=== PATIENT | female | born 1955 | race Caucasian/White ===

== ENCOUNTER 2018-11-29 15:36 | Observation (INO) ==
[2018-11-29 17:36] LABS: Basophils % 0.6 % (0.0-0.8); Hematocrit 31.1 VOL% (35.7-47.0); Hemoglobin 10.1 GM/DL (12.0-16.0); Immature Granulocytes % 0.3 %; Immature Granulocytes Absolute 0.02 #; Lymphocytes # 1.8 10*3/uL (1.4-4.0); Lymphocytes % 26.2 % (21.3-54.2); Mean Corpuscular HGB Conc 32.5 GM/DL (32-36); Mean Corpuscular Volume 97.5 FL (87-102); Mean Platelet Volume 9.8 FL (9.6-12.0); Monocytes % 7.9 % (1.7-12.7); Platelet Count 282 T/CUMM (130-400); Red Blood Count 3.19 MC/CUMM (3.8-5.5); Red Cell Distribution Width 15.6 % (9.3-17.3); White Blood Count 6.7 T/CUMM (4-12)
[2018-11-29 17:51] LABS: INR 0.9; PT Patient Result 10.3 SECS
[2018-11-29 17:58] LABS: Alanine Aminotransferase 17 U/L (13-56); Albumin 3.8 G/DL (3.4-5.0); Alkaline Phosphatase 67 U/L (45-117); Aspartate Amino Transferase 15 U/L (0-37); Blood Urea Nitrogen 26 MG/DL (7-18); Calcium 9.1 MG/DL (8.5-10.1); Glucose 96 MG/DL (74-106); Osmolality,Calculated 281.5 MOS/KG (273-304); Total Protein 7.2 G/DL (6.4-8.3); Troponin I < 0.015 NG/ML (0.00-0.045)
[2018-11-29 18:18] LABS: Apearance,Urine Slightly Hazy (Clear); Bilirubin,Urine Negative (Negative); Blood, Urine Negative (Negative); Glucose,Urine (UA) Negative (Negative); Ketones,Urine 5 mg/dL (Negative); Mucus,Urine Few /LPF (Occasional); Nitrite,Urine Negative (Negative); Protein,Urine Negative; RBC,Urine 11 /HPF (0-4); Squamous Epithelial Cell,Urine Occasional /HPF (0-10); Urine Color Yellow (Yellow); Urine Specific Gravity 1.014 (1.001-1.035); Urine Urobilinogen < 2.0 EU/DL (0.2-1.0); WBC,Urine 416 /HPF (0-6)
[2018-11-29] MEDS ORDERED: LEVOFLOXACIN INJ 750 MG in PREMIX 1 EACH IV STA (18:40)
[2018-11-29] MEDS ORDERED: HALOPERIDOL 5 MG/ML AMP ONE (18:58)
[2018-11-29] MEDS ORDERED: HALOPERIDOL 5 MG/ML AMP IM STA (19:03)
[2018-11-29] MEDS ORDERED: LEVOFLOXACIN 750 MG TABLET PO STA (19:53)
[2018-11-29 20:49] LABS: Barbiturates Screen,Urine Negative (Negative); Benzodiazepines Screen,Urine Negative (Negative); Cannabinoid Screen,Urine Negative (Negative); Opiate Screen,Urine Negative (Negative); Phencyclidine Screen,Urine Negative (Negative)
[2018-11-29] MEDS ORDERED: NICOTINE 21 MG/24 HR PATCH TRANSDERM PRN (23:45)
[2018-11-29] MEDS ORDERED: PROMETHAZINE 25 MG/1 ML VIAL IM PRN (23:45)
[2018-11-29] MEDS ORDERED: HALOPERIDOL 5 MG/ML AMP IM ONE (23:45)
[2018-11-29] MEDS ORDERED: diphenhydrAMINE CAP 25 MG CAPSULE PO PRN (23:45)
[2018-11-29] MEDS ORDERED: HALOPERIDOL 5 MG/ML AMP IM PRN (23:45)
[2018-11-29] MEDS ORDERED: ACETAMINOPHEN 325 MG TABLET PO PRN (23:45)
[2018-11-29] MEDS ORDERED: BISACODYL 5 MG TABLET PO PRN (23:45)
[2018-11-29] MEDS ORDERED: ONDANSETRON 4 MG/2 ML VIAL IV PRN (23:45)
[2018-11-29] MEDS ORDERED: MORPHINE 4 MG/1 ML VIAL IV PRN (23:45)
[2018-11-30] MEDS ORDERED: hydrALAZINE 20 MG/1 ML VIAL IV PRN (00:02)
[2018-11-30] MEDS ORDERED: LORazepam 2 MG/1 ML VIAL IV ONE (00:59)
[2018-11-30] MEDS: SODIUM CHLORIDE 0.9% 1,000 ML IV SCH ×2 (01:13→14:09)
[2018-11-30 03:36] LABS: Basophils % 0.3 % (0.0-0.8); Hematocrit 30.7 VOL% (35.7-47.0); Hemoglobin 10.1 GM/DL (12.0-16.0); Immature Granulocytes % 0.3 %; Immature Granulocytes Absolute 0.02 #; Lymphocytes # 1.8 10*3/uL (1.4-4.0); Lymphocytes % 30.3 % (21.3-54.2); Mean Corpuscular HGB Conc 32.9 GM/DL (32-36); Mean Corpuscular Volume 95.6 FL (87-102); Mean Platelet Volume 9.8 FL (9.6-12.0); Monocytes % 7.3 % (1.7-12.7); Neutrophils % 61.8 % (38.7-73.9); Platelet Count 256 T/CUMM (130-400); Red Blood Count 3.21 MC/CUMM (3.8-5.5); Red Cell Distribution Width 15.5 % (9.3-17.3)
[2018-11-30 04:07] LABS: Albumin 3.4 G/DL (3.4-5.0); Bilirubin,Total 0.4 MG/DL (0.2-1.0); Calcium 8.9 MG/DL (8.5-10.1); Osmolality,Calculated 279.5 MOS/KG (273-304); Total Protein 6.9 G/DL (6.4-8.3)
[2018-11-30] MEDS ORDERED: PROCHLORPERAZINE 10 MG TABLET PO PRN (08:02)
[2018-11-30] MEDS: ENALAPRIL 10 MG TABLET PO SCH ×2 (08:56→21:57)
[2018-11-30] MEDS: PANTOPRAZOLE 40 MG TABLET PO SCH (08:56)
[2018-11-30] MEDS: BENZTROPINE 1 MG TABLET PO SCH (08:56)
[2018-11-30] MEDS ORDERED: LEVOFLOXACIN INJ 750 MG in PREMIX 1 EACH IV SCH (18:00)
[2018-11-30] MEDS ORDERED: TRIFLUOPERAZINE 2 MG PO SCH (21:00)
[2018-11-30] MEDS: traZODone 50 MG TABLET PO SCH (21:56)
[2018-11-30] MEDS: SIMVASTATIN 10 MG TABLET PO SCH (21:58)
[2018-12-01 02:48] LABS: Basophils % 0.7 % (0.0-0.8); Eosinophils % 0.3 % (0.00-10.9); Hematocrit 30.1 VOL% (35.7-47.0); Hemoglobin 9.6 GM/DL (12.0-16.0); Immature Granulocytes % 0.5 %; Immature Granulocytes Absolute 0.03 #; Lymphocytes # 2.6 10*3/uL (1.4-4.0); Lymphocytes % 42.3 % (21.3-54.2); Mean Corpuscular HGB Conc 31.9 GM/DL (32-36); Mean Corpuscular Volume 98.7 FL (87-102); Mean Platelet Volume 10.1 FL (9.6-12.0); Monocytes % 7.4 % (1.7-12.7); Neutrophils % 48.8 % (38.7-73.9); Platelet Count 258 T/CUMM (130-400); Red Blood Count 3.05 MC/CUMM (3.8-5.5); Red Cell Distribution Width 15.9 % (9.3-17.3); White Blood Count 6.1 T/CUMM (4-12)
[2018-12-01 03:03] LABS: Calcium 8.5 MG/DL (8.5-10.1); Osmolality,Calculated 283.3 MOS/KG (273-304)
[2018-12-01] MEDS: SODIUM CHLORIDE 0.9% 1,000 ML IV SCH (04:16)
[2018-12-01] MEDS ORDERED: MAGNESIUM SULF RIDER 2 GM in PREMIX 1 EACH IV ONE (06:47)
[2018-12-01] MEDS: BENZTROPINE 1 MG TABLET PO SCH (08:49)
[2018-12-01] MEDS: PANTOPRAZOLE 40 MG TABLET PO SCH (08:49)
[2018-12-01] MEDS: ENALAPRIL 10 MG TABLET PO SCH ×2 (08:49→20:55)
[2018-12-01] MEDS: traZODone 50 MG TABLET PO SCH (20:55)
[2018-12-01] MEDS: SIMVASTATIN 10 MG TABLET PO SCH (20:55)
[2018-12-02 05:39] LABS: Basophils % 0.7 % (0.0-0.8); Eosinophils # 0.1 10*3/uL (0.0-0.87); Eosinophils % 1.7 % (0.00-10.9); Hematocrit 29.9 VOL% (35.7-47.0); Hemoglobin 9.7 GM/DL (12.0-16.0); Immature Granulocytes % 0.2 %; Immature Granulocytes Absolute 0.01 #; Lymphocytes # 2.2 10*3/uL (1.4-4.0); Lymphocytes % 37.6 % (21.3-54.2); Mean Corpuscular HGB Conc 32.4 GM/DL (32-36); Mean Corpuscular Volume 99.7 FL (87-102); Mean Platelet Volume 10.2 FL (9.6-12.0); Monocytes % 7.3 % (1.7-12.7); Neutrophils % 52.5 % (38.7-73.9); Platelet Count 257 T/CUMM (130-400); Red Cell Distribution Width 15.9 % (9.3-17.3); White Blood Count 5.7 T/CUMM (4-12)
[2018-12-02 06:22] LABS: Calcium 9.3 MG/DL (8.5-10.1); Osmolality,Calculated 283.3 MOS/KG (273-304)
[2018-12-02 08:00] VITALS: BP 128/74
[2018-12-02] MEDS: ENALAPRIL 10 MG TABLET PO SCH (09:10)
[2018-12-02] MEDS: BENZTROPINE 1 MG TABLET PO SCH (09:11)
[2018-12-02] MEDS: PANTOPRAZOLE 40 MG TABLET PO SCH (09:11)
[2018-12-02] MEDS ORDERED: HEPARIN LOCK FLUSH 500 UNIT/5 ML SYRINGE IV PRN (10:18)
== END 2018-12-02 10:59 | disposition home or self-care (01) ==
LOC: EDBD → EDUNIT# → N.ED 15:36 → N.EDINP 23:11 → SUATTDRO 23:11 → INTOOBSV 23:11 → N.4E 23:35
PROVIDERS: ADMIT Internal Medicine; ATTEND Internal Medicine

== ENCOUNTER 2018-12-07 03:22 | Inpatient (IN) ==
[2018-12-07] MEDS ORDERED: HALOPERIDOL 5 MG/ML AMP IV STA (04:39)
[2018-12-07] MEDS ORDERED: diphenhydrAMINE 50 MG/1 ML VIAL IV STA (04:41)
[2018-12-07 05:57] LABS: Basophils % 0.3 % (0.0-0.8); Immature Granulocytes % 0.3 %; Immature Granulocytes Absolute 0.02 #; Lymphocytes # 1.6 10*3/uL (1.4-4.0); Lymphocytes % 25.8 % (21.3-54.2); Mean Corpuscular HGB Conc 32.3 GM/DL (32-36); Mean Platelet Volume 10.1 FL (9.6-12.0); Monocytes % 6.3 % (1.7-12.7); Neutrophils % 67.3 % (38.7-73.9); Platelet Count 244 T/CUMM (130-400); Red Blood Count 3.13 MC/CUMM (3.8-5.5); Red Cell Distribution Width 15.3 % (9.3-17.3)
[2018-12-07 06:16] LABS: Alanine Aminotransferase 23 U/L (13-56); Albumin 3.7 G/DL (3.4-5.0); Alkaline Phosphatase 75 U/L (45-117); Aspartate Amino Transferase 19 U/L (0-37); Blood Urea Nitrogen 32 MG/DL (7-18); Calcium 9.1 MG/DL (8.5-10.1); Glucose 90 MG/DL (74-106); Osmolality,Calculated 279.8 MOS/KG (273-304); Total Protein 7.1 G/DL (6.4-8.3)
[2018-12-07 07:16] LABS: Apearance,Urine CLEAR (Clear); Bilirubin,Urine Negative (Negative); Blood, Urine Negative (Negative); Glucose,Urine (UA) Negative (Negative); Ketones,Urine 5 mg/dL (Negative); Mucus,Urine Occasional /LPF (Occasional); Nitrite,Urine Negative (Negative); Protein,Urine Negative; Squamous Epithelial Cell,Urine Occasional /HPF (0-10); Urine Color Yellow (Yellow); Urine Specific Gravity 1.017 (1.001-1.035); Urine Urobilinogen < 2.0 EU/DL (0.2-1.0); WBC,Urine 2 /HPF (0-6)
[2018-12-07 07:27] LABS: Barbiturates Screen,Urine Negative (Negative); Benzodiazepines Screen,Urine Negative (Negative); Cannabinoid Screen,Urine Negative (Negative); Opiate Screen,Urine Negative (Negative); Phencyclidine Screen,Urine Negative (Negative)
[2018-12-07] MEDS ORDERED: ACETAMINOPHEN 325 MG TABLET PO PRN (08:05)
[2018-12-07] MEDS ORDERED: ONDANSETRON 4 MG/2 ML VIAL IV PRN (08:05)
[2018-12-07] MEDS ORDERED: PROCHLORPERAZINE 10 MG TABLET PO PRN (08:10)
[2018-12-07] MEDS: SODIUM CHLORIDE 0.9% 1,000 ML IV SCH ×2 (09:28→22:23)
[2018-12-07] MEDS: BENZTROPINE 1 MG TABLET PO SCH (10:55)
[2018-12-07] MEDS: CETIRIZINE 10 MG TABLET PO SCH (10:55)
[2018-12-07] MEDS: PANTOPRAZOLE 40 MG TABLET PO SCH (10:56)
[2018-12-07] MEDS: BENAZEPRIL 10 MG TABLET PO SCH ×2 (11:09→20:25)
[2018-12-07] MEDS: TRIFLUOPERAZINE 2 MG PO SCH (20:21)
[2018-12-07] MEDS: traZODone 50 MG TABLET PO SCH (20:24)
[2018-12-07] MEDS: SIMVASTATIN 10 MG TABLET PO SCH (20:25)
[2018-12-07] MEDS: SODIUM CHLORIDE 0.9% IV SCH (21:39)
[2018-12-07] MEDS: CHLORPROMAZINE IV SCH (21:39)
[2018-12-08] MEDS: CHLORPROMAZINE IV SCH ×4 (02:32→20:14)
[2018-12-08] MEDS: SODIUM CHLORIDE 0.9% IV SCH ×4 (02:32→20:14)
[2018-12-08 05:52] LABS: Basophils % 0.5 % (0.0-0.8); Eosinophils % 0.2 % (0.00-10.9); Hematocrit 26.9 VOL% (35.7-47.0); Hemoglobin 8.6 GM/DL (12.0-16.0); Immature Granulocytes % 0.2 %; Immature Granulocytes Absolute 0.01 #; Lymphocytes # 1.9 10*3/uL (1.4-4.0); Lymphocytes % 45.9 % (21.3-54.2); Mean Corpuscular Volume 100.7 FL (87-102); Mean Platelet Volume 10.5 FL (9.6-12.0); Monocytes % 4.5 % (1.7-12.7); Neutrophils % 48.7 % (38.7-73.9); Platelet Count 218 T/CUMM (130-400); Red Blood Count 2.67 MC/CUMM (3.8-5.5); Red Cell Distribution Width 15.8 % (9.3-17.3); White Blood Count 4.2 T/CUMM (4-12)
[2018-12-08 06:39] LABS: Albumin 3.1 G/DL (3.4-5.0); Bilirubin,Total 0.7 MG/DL (0.2-1.0); Calcium 8.4 MG/DL (8.5-10.1); Osmolality,Calculated 289.7 MOS/KG (273-304); Total Protein 5.9 G/DL (6.4-8.3)
[2018-12-08 06:45] LABS: Thyroid Stimulating Hormone 1.56 uIU/ml (0.358-3.74)
[2018-12-08] MEDS: BENAZEPRIL 10 MG TABLET PO SCH ×2 (10:18→20:11)
[2018-12-08] MEDS: BENZTROPINE 1 MG TABLET PO SCH (10:18)
[2018-12-08] MEDS: CETIRIZINE 10 MG TABLET PO SCH (10:20)
[2018-12-08] MEDS: PANTOPRAZOLE 40 MG TABLET PO SCH (10:20)
[2018-12-08] MEDS: SODIUM CHLORIDE 0.9% 1,000 ML IV SCH ×2 (10:47→23:47)
[2018-12-08] MEDS: SIMVASTATIN 10 MG TABLET PO SCH (20:11)
[2018-12-08] MEDS: traZODone 50 MG TABLET PO SCH (20:11)
[2018-12-08] MEDS: TRIFLUOPERAZINE 2 MG PO SCH (20:11)
[2018-12-09] MEDS: CHLORPROMAZINE IV SCH ×4 (02:39→21:14)
[2018-12-09] MEDS: SODIUM CHLORIDE 0.9% IV SCH ×4 (02:39→21:14)
[2018-12-09 05:01] LABS: Basophils % 0.7 % (0.0-0.8); Eosinophils # 0.1 10*3/uL (0.0-0.87); Eosinophils % 1.5 % (0.00-10.9); Hematocrit 23.4 VOL% (35.7-47.0); Hemoglobin 7.3 GM/DL (12.0-16.0); Immature Granulocytes % 0.4 %; Immature Granulocytes Absolute 0.02 #; Lymphocytes % 44.5 % (21.3-54.2); Mean Corpuscular HGB Conc 31.2 GM/DL (32-36); Mean Corpuscular Volume 103.1 FL (87-102); Mean Platelet Volume 10.4 FL (9.6-12.0); Monocytes % 4.8 % (1.7-12.7); Neutrophils % 48.1 % (38.7-73.9); Platelet Count 177 T/CUMM (130-400); Red Blood Count 2.27 MC/CUMM (3.8-5.5); Red Cell Distribution Width 15.9 % (9.3-17.3); White Blood Count 4.6 T/CUMM (4-12)
[2018-12-09 05:33] LABS: Alanine Aminotransferase 17 U/L (13-56); Albumin 2.4 G/DL (3.4-5.0); Alkaline Phosphatase 49 U/L (45-117); Aspartate Amino Transferase 12 U/L (0-37); Bilirubin,Total < 0.39 MG/DL (0.2-1.0); Blood Urea Nitrogen 18 MG/DL (7-18); Glucose 59 MG/DL (74-106); Osmolality,Calculated 291.4 MOS/KG (273-304); Total Protein 4.3 G/DL (6.4-8.3)
[2018-12-09] MEDS ORDERED: SODIUM CHLORIDE 0.9% 1,000 ML IV PRN (08:03)
[2018-12-09] MEDS: CETIRIZINE 10 MG TABLET PO SCH (09:16)
[2018-12-09] MEDS: BENZTROPINE 1 MG TABLET PO SCH (09:16)
[2018-12-09] MEDS: BENAZEPRIL 10 MG TABLET PO SCH ×2 (09:16→21:14)
[2018-12-09] MEDS: PANTOPRAZOLE 40 MG TABLET PO SCH (09:16)
[2018-12-09] MEDS: SODIUM CHLORIDE 0.9% 1,000 ML IV SCH (14:44)
[2018-12-09] MEDS: traZODone 50 MG TABLET PO SCH (20:29)
[2018-12-09] MEDS: SIMVASTATIN 10 MG TABLET PO SCH (20:29)
[2018-12-09] MEDS: POTASSIUM CHLORIDE 20 MEQ TABLET PO PRN ×2 (20:29→23:16)
[2018-12-09] MEDS: TRIFLUOPERAZINE 2 MG PO SCH (20:29)
[2018-12-10] MEDS: POTASSIUM CHLORIDE 20 MEQ TABLET PO PRN ×2 (01:28→03:18)
[2018-12-10] MEDS: CHLORPROMAZINE IV SCH ×2 (03:18→08:44)
[2018-12-10] MEDS: SODIUM CHLORIDE 0.9% IV SCH ×2 (03:18→08:44)
[2018-12-10 04:17] LABS: Basophils % 0.4 % (0.0-0.8); Eosinophils # 0.2 10*3/uL (0.0-0.87); Eosinophils % 1.9 % (0.00-10.9); Hematocrit 32.9 VOL% (35.7-47.0); Hemoglobin 10.4 GM/DL (12.0-16.0); Immature Granulocytes % 0.5 %; Immature Granulocytes Absolute 0.04 #; Lymphocytes # 2.4 10*3/uL (1.4-4.0); Lymphocytes % 29.1 % (21.3-54.2); Mean Corpuscular HGB Conc 31.6 GM/DL (32-36); Mean Corpuscular Volume 98.2 FL (87-102); Mean Platelet Volume 10.1 FL (9.6-12.0); Monocytes % 5.8 % (1.7-12.7); Neutrophils % 62.3 % (38.7-73.9); Platelet Count 199 T/CUMM (130-400); Red Blood Count 3.35 MC/CUMM (3.8-5.5); Red Cell Distribution Width 17.3 % (9.3-17.3); White Blood Count 8.3 T/CUMM (4-12)
[2018-12-10 04:45] LABS: Albumin 3.1 G/DL (3.4-5.0); Bilirubin,Total 0.6 MG/DL (0.2-1.0); Calcium 8.5 MG/DL (8.5-10.1); Osmolality,Calculated 285.8 MOS/KG (273-304); Total Protein 5.8 G/DL (6.4-8.3)
[2018-12-10] MEDS: SODIUM CHLORIDE 0.9% 1,000 ML IV SCH (05:59)
[2018-12-10] MEDS ORDERED: MAGNESIUM SULF RIDER 2 GM in PREMIX 1 EACH IV PRN (07:50)
[2018-12-10] MEDS ORDERED: MAGNESIUM SULF RIDER 4 GM in PREMIX 1 EACH IV PRN (07:50)
[2018-12-10] MEDS ORDERED: DEXAMETHASONE 10 MG/1 ML VIAL IV ONE (08:11)
[2018-12-10] MEDS: BENZTROPINE 1 MG TABLET PO SCH (08:43)
[2018-12-10] MEDS: BENAZEPRIL 10 MG TABLET PO SCH (08:43)
[2018-12-10] MEDS: PANTOPRAZOLE 40 MG TABLET PO SCH (08:43)
[2018-12-10] MEDS: CETIRIZINE 10 MG TABLET PO SCH (08:43)
[2018-12-10] MEDS ORDERED: FOSAPREPITANT 150 MG in SODIUM CHLORIDE 0.9% 100 ML IV ONE (09:00)
[2018-12-10] MEDS ORDERED: GRANISETRON 1 MG/1 ML VIAL IV SCH (09:00)
[2018-12-10 12:11] VITALS: BP 133/86
[2018-12-10] MEDS ORDERED: HEPARIN LOCK FLUSH 500 UNIT/5 ML SYRINGE IV ONE (13:39)
== END 2018-12-10 14:26 | disposition home health service (06) | DRG 92 ==
LOC: N.ED 03:22 → N.EDINP 03:22 → N.4E 09:53
PROVIDERS: ADMIT Internal Medicine; ATTEND Internal Medicine

== ENCOUNTER 2019-03-02 22:47 | Inpatient (IN) ==
[2019-03-03] MEDS ORDERED: NICOTINE 21 MG/24 HR PATCH TRANSDERM PRN (01:07)
[2019-03-03] MEDS ORDERED: MORPHINE 4 MG/1 ML VIAL IV PRN (01:07)
[2019-03-03] MEDS ORDERED: ONDANSETRON 4 MG/2 ML VIAL IV PRN (01:07)
[2019-03-03 01:17] LABS: PT Patient Result 11.3 SECS (9.6-12.2); Partial Thromboplastin Time < 21.0 SECS (20.8-36.0)
[2019-03-03 01:18] LABS: Albumin 3.4 G/DL (3.4-5.0); Bilirubin,Total 0.5 MG/DL (0.2-1.0); Calcium 9.1 MG/DL (8.5-10.1); Osmolality,Calculated 299.6 MOS/KG (273-304); Total Protein 6.2 G/DL (6.4-8.3)
[2019-03-03 01:30] LABS: Basophils % 0.2 % (0.0-0.8); Hematocrit 28.1 VOL% (35.7-47.0); Hemoglobin 9.2 GM/DL (12.0-16.0); Immature Granulocytes % 0.4 %; Immature Granulocytes Absolute 0.07 #; Lymphocytes # 1.1 10*3/uL (1.4-4.0); Lymphocytes % 6.4 % (21.3-54.2); Mean Corpuscular HGB Conc 32.7 GM/DL (32-36); Mean Corpuscular Volume 101.1 FL (87-102); Mean Platelet Volume 10.8 FL (9.6-12.0); Monocytes % 13.3 % (1.7-12.7); Neutrophils % 79.7 % (38.7-73.9); Platelet Count 200 T/CUMM (130-400); Red Blood Count 2.78 MC/CUMM (3.8-5.5)
[2019-03-03] MEDS: HALOPERIDOL 5 MG/ML AMP IM PRN (02:56)
[2019-03-03] MEDS: SODIUM CHLORIDE 0.9% 1,000 ML IV SCH ×4 (03:32→23:58)
[2019-03-03] MEDS ORDERED: CLINDAMYCIN INJ 900 MG in PREMIX 1 EACH IV ONE (07:25)
[2019-03-03] MEDS ORDERED: HYDROmorphone 2 MG/1 ML VIAL ONE (09:50)
[2019-03-03] MEDS ORDERED: LACTULOSE 20 GM/30 ML UDCUP PO PRN (10:10)
[2019-03-03] MEDS ORDERED: diphenhydrAMINE CAP 25 MG CAPSULE PO PRN (10:10)
[2019-03-03] MEDS ORDERED: PROMETHAZINE 25 MG/1 ML VIAL IM PRN (10:10)
[2019-03-03] MEDS ORDERED: BISACODYL 5 MG TABLET PO PRN (10:10)
[2019-03-03] MEDS ORDERED: LIDOCAINE 2% 5 ML VIAL ONE (10:34)
[2019-03-03] MEDS ORDERED: PHENYLEPHRINE DRIP 20 MG/250 ML PREMIX IV ONE (10:34)
[2019-03-03] MEDS ORDERED: propofoL 200 MG/20 ML VIAL IV ONE (10:34)
[2019-03-03] MEDS ORDERED: ROCURONIUM 100 MG/10 ML VIAL IV ONE (10:35)
[2019-03-03] MEDS ORDERED: DEXAMETHASONE 4 MG/1 ML VIAL ONE (10:35)
[2019-03-03] MEDS ORDERED: fentaNYL 100 MCG/2 ML VIAL ONE (10:35)
[2019-03-03] MEDS ORDERED: GLYCOPYRROLATE 0.4 MG/2 ML VIAL ONE (10:35)
[2019-03-03] MEDS ORDERED: SEVOFLURANE 1 UNIT/15 MINUTE INH ONE (10:35)
[2019-03-03] MEDS ORDERED: PHENYLEPHRINE 1 MG/10 ML SYRINGE IV ONE (10:35)
[2019-03-03] MEDS ORDERED: ONDANSETRON 4 MG/2 ML VIAL ONE (10:35)
[2019-03-03] MEDS ORDERED: NEOSTIGMINE 10 MG/10 ML VIAL ONE (10:36)
[2019-03-03 10:50] LABS: Basophils % 0.3 % (0.0-0.8); Hematocrit 22.9 VOL% (35.7-47.0); Hemoglobin 7.4 GM/DL (12.0-16.0); Immature Granulocytes % 0.3 %; Immature Granulocytes Absolute 0.03 #; Lymphocytes # 1.5 10*3/uL (1.4-4.0); Lymphocytes % 15.4 % (21.3-54.2); Mean Corpuscular HGB Conc 32.3 GM/DL (32-36); Mean Corpuscular Volume 103.2 FL (87-102); Mean Platelet Volume 10.3 FL (9.6-12.0); Monocytes % 15.3 % (1.7-12.7); Neutrophils % 68.7 % (38.7-73.9); Platelet Count 161 T/CUMM (130-400); Red Blood Count 2.22 MC/CUMM (3.8-5.5); Red Cell Distribution Width 13.2 % (9.3-17.3); White Blood Count 9.9 T/CUMM (4-12)
[2019-03-03 11:20] LABS: Albumin 2.7 G/DL (3.4-5.0); Bilirubin,Total 0.4 MG/DL (0.2-1.0); Calcium 7.8 MG/DL (8.5-10.1); Osmolality,Calculated 300.4 MOS/KG (273-304); Total Protein 5.2 G/DL (6.4-8.3)
[2019-03-03] MEDS: CLINDAMYCIN INJ 900 MG in PREMIX 1 EACH IV SCH ×2 (16:33→23:58)
[2019-03-03] MEDS: DOCUSATE SODIUM 100 MG CAPSULE PO SCH (21:27)
[2019-03-04] MEDS: MORPHINE 4 MG/1 ML VIAL IV PRN ×3 (03:22→21:49)
[2019-03-04 06:00] LABS: Basophils % 0.1 % (0.0-0.8); Hemoglobin 6.5 GM/DL (12.0-16.0); Immature Granulocytes % 0.4 %; Immature Granulocytes Absolute 0.04 #; Lymphocytes # 1.3 10*3/uL (1.4-4.0); Lymphocytes % 12.1 % (21.3-54.2); Mean Corpuscular Volume 104.5 FL (87-102); Mean Platelet Volume 11.1 FL (9.6-12.0); Monocytes % 14.3 % (1.7-12.7); Neutrophils % 73.1 % (38.7-73.9); Platelet Count 146 T/CUMM (130-400); Red Blood Count 2.01 MC/CUMM (3.8-5.5); Red Cell Distribution Width 13.3 % (9.3-17.3); White Blood Count 10.3 T/CUMM (4-12)
[2019-03-04] MEDS: SODIUM CHLORIDE 0.9% 1,000 ML IV SCH ×2 (06:21→17:09)
[2019-03-04 06:26] LABS: Calcium 8.2 MG/DL (8.5-10.1); Osmolality,Calculated 306.1 MOS/KG (273-304)
[2019-03-04] MEDS ORDERED: SODIUM CHLORIDE 0.9% 1,000 ML IV PRN (08:11)
[2019-03-04] MEDS: CLINDAMYCIN INJ 900 MG in PREMIX 1 EACH IV SCH ×2 (08:52→17:08)
[2019-03-04] MEDS: DOCUSATE SODIUM 100 MG CAPSULE PO SCH ×2 (09:09→20:33)
[2019-03-04 18:46] LABS: Hematocrit 26.4 VOL% (35.7-47.0); Hemoglobin 8.4 GM/DL (12.0-16.0)
[2019-03-05] MEDS: HALOPERIDOL 5 MG/ML AMP IM PRN ×2 (00:35→23:45)
[2019-03-05] MEDS: SODIUM CHLORIDE 0.9% 1,000 ML IV SCH ×3 (03:26→16:41)
[2019-03-05] MEDS: MORPHINE 4 MG/1 ML VIAL IV PRN (03:49)
[2019-03-05 05:24] LABS: Basophils % 0.2 % (0.0-0.8); Hematocrit 26.8 VOL% (35.7-47.0); Hemoglobin 8.8 GM/DL (12.0-16.0); Immature Granulocytes Absolute 0.11 #; Lymphocytes # 1.5 10*3/uL (1.4-4.0); Mean Corpuscular HGB Conc 32.8 GM/DL (32-36); Mean Corpuscular Volume 98.5 FL (87-102); Mean Platelet Volume 10.7 FL (9.6-12.0); Monocytes % 13.2 % (1.7-12.7); Neutrophils % 71.6 % (38.7-73.9); Platelet Count 145 T/CUMM (130-400); Red Blood Count 2.72 MC/CUMM (3.8-5.5); Red Cell Distribution Width 15.8 % (9.3-17.3); White Blood Count 10.8 T/CUMM (4-12)
[2019-03-05 05:40] LABS: Calcium 8.3 MG/DL (8.5-10.1); Osmolality,Calculated 298.4 MOS/KG (273-304)
[2019-03-05] MEDS: DOCUSATE SODIUM 100 MG CAPSULE PO SCH ×2 (09:19→20:29)
[2019-03-05] MEDS ORDERED: TUBERCULIN SKIN TEST 0.1 ML SYRINGE INTRADERM ONE (14:14)
[2019-03-06] MEDS: DOCUSATE SODIUM 100 MG CAPSULE PO SCH ×2 (09:09→21:22)
[2019-03-06] MEDS: BENZTROPINE 1 MG TABLET PO SCH ×2 (12:14→12:24)
[2019-03-06] MEDS: OLANZapine 5 MG TABLET PO SCH ×3 (12:15→21:23)
[2019-03-06] MEDS: TAMSULOSIN 0.4 MG CAPSULE PO SCH ×3 (12:15→21:22)
[2019-03-06] MEDS: TRIFLUOPERAZINE 2 MG PO SCH ×3 (12:15→21:23)
[2019-03-06] MEDS: MORPHINE 4 MG/1 ML VIAL IV PRN ×3 (12:33→23:47)
[2019-03-06] MEDS: SODIUM CHLORIDE 0.9% 1,000 ML IV SCH ×2 (14:11→20:50)
[2019-03-06] MEDS ORDERED: traZODone 50 MG TABLET PO PRN (21:00)
[2019-03-07 05:51] LABS: Basophils % 0.4 % (0.0-0.8); Eosinophils # 0.1 10*3/uL (0.0-0.87); Eosinophils % 0.5 % (0.00-10.9); Hematocrit 25.1 VOL% (35.7-47.0); Hemoglobin 8.3 GM/DL (12.0-16.0); Immature Granulocytes % 0.9 %; Immature Granulocytes Absolute 0.08 #; Lymphocytes # 1.8 10*3/uL (1.4-4.0); Lymphocytes % 19.5 % (21.3-54.2); Mean Corpuscular HGB Conc 33.1 GM/DL (32-36); Mean Platelet Volume 10.8 FL (9.6-12.0); Monocytes % 12.7 % (1.7-12.7); Platelet Count 166 T/CUMM (130-400); Red Blood Count 2.56 MC/CUMM (3.8-5.5); Red Cell Distribution Width 14.5 % (9.3-17.3); White Blood Count 9.3 T/CUMM (4-12)
[2019-03-07] MEDS: TRIFLUOPERAZINE 2 MG PO SCH (09:53)
[2019-03-07] MEDS: DOCUSATE SODIUM 100 MG CAPSULE PO SCH ×2 (09:53→20:38)
[2019-03-07] MEDS: OLANZapine 5 MG TABLET PO SCH (09:54)
[2019-03-07] MEDS: BENZTROPINE 1 MG TABLET PO SCH (09:55)
[2019-03-07 11:01] LABS: Calcium 8.1 MG/DL (8.5-10.1); Osmolality,Calculated 287.1 MOS/KG (273-304)
[2019-03-07] MEDS: MORPHINE 4 MG/1 ML VIAL IV PRN ×2 (12:03→18:42)
[2019-03-07] MEDS: SODIUM CHLORIDE 0.9% 1,000 ML IV SCH (14:20)
[2019-03-07] MEDS ORDERED: MAGNESIUM SULF RIDER 4 GM in PREMIX 1 EACH IV PRN (14:48)
[2019-03-07] MEDS: POLYETHYLENE GLYCOL POWDER 17 GM PACK PO SCH (20:38)
[2019-03-07] MEDS: TAMSULOSIN 0.4 MG CAPSULE PO SCH (20:38)
[2019-03-07] MEDS ORDERED: BENAZEPRIL 10 MG TABLET PO SCH (21:00)
[2019-03-08 05:35] LABS: Calcium 7.4 MG/DL (8.5-10.1); Osmolality,Calculated 281.3 MOS/KG (273-304)
[2019-03-08] MEDS: POLYETHYLENE GLYCOL POWDER 17 GM PACK PO SCH ×2 (08:40→21:05)
[2019-03-08] MEDS: DOCUSATE SODIUM 100 MG CAPSULE PO SCH ×2 (08:40→21:05)
[2019-03-08] MEDS: ENALAPRIL 20 MG TABLET PO SCH (08:40)
[2019-03-08] MEDS: FLUDROCORTISONE 0.1 MG TABLET PO SCH (11:59)
[2019-03-08] MEDS: HYDROCORTISONE 100 MG VIAL IV SCH ×2 (11:59→23:06)
[2019-03-08] MEDS ORDERED: SODIUM CHLOR 0.9% KCL 20 MEQ 20 MEQ/1,000 ML BAG IV SCH (14:55)
[2019-03-08] MEDS: SODIUM CHLORIDE 0.9% 1,000 ML IV SCH ×2 (15:43→16:51)
[2019-03-08] MEDS: MAGNESIUM SULF RIDER 2 GM in PREMIX 1 EACH IV PRN (15:43)
[2019-03-08] MEDS ORDERED: POTASSIUM PHOSPHATE 30 MMOL in SODIUM CHLORIDE 0.9% 250 ML IV ONE (17:00)
[2019-03-08] MEDS: TAMSULOSIN 0.4 MG CAPSULE PO SCH (21:05)
[2019-03-09] MEDS: SODIUM CHLORIDE 0.9% 1,000 ML IV SCH ×2 (03:53→15:30)
[2019-03-09 06:43] LABS: Osmolality,Calculated 283.3 MOS/KG (273-304)
[2019-03-09] MEDS: FLUDROCORTISONE 0.1 MG TABLET PO SCH (09:33)
[2019-03-09] MEDS: DOCUSATE SODIUM 100 MG CAPSULE PO SCH ×2 (09:33→21:53)
[2019-03-09] MEDS: POLYETHYLENE GLYCOL POWDER 17 GM PACK PO SCH (09:33)
[2019-03-09] MEDS: ENALAPRIL 20 MG TABLET PO SCH (09:33)
[2019-03-09] MEDS: HYDROCORTISONE 100 MG VIAL IV SCH ×2 (11:27→23:41)
[2019-03-09] MEDS: MORPHINE 4 MG/1 ML VIAL IV PRN ×2 (12:11→16:47)
[2019-03-09] MEDS: TAMSULOSIN 0.4 MG CAPSULE PO SCH ×2 (15:28→21:53)
[2019-03-09] MEDS ORDERED: traZODone 50 MG TABLET PO PRN (21:00)
[2019-03-10] MEDS: SODIUM CHLORIDE 0.9% 1,000 ML IV SCH ×2 (05:05→18:16)
[2019-03-10] MEDS ORDERED: HYDROCORTISONE 100 MG VIAL IV SCH (09:00)
[2019-03-10] MEDS: MORPHINE 4 MG/1 ML VIAL IV PRN ×2 (11:21→18:16)
[2019-03-10] MEDS: DOCUSATE SODIUM 100 MG CAPSULE PO SCH ×2 (13:22→20:46)
[2019-03-10] MEDS: TAMSULOSIN 0.4 MG CAPSULE PO SCH ×2 (13:22→21:59)
[2019-03-10] MEDS: ENALAPRIL 20 MG TABLET PO SCH (13:23)
[2019-03-10] MEDS: CIPROFLOXACIN 0.3% OPH SOLN 2.5 ML BOTTLE LEFT EYE SCH (23:12)
[2019-03-11] MEDS: CIPROFLOXACIN 0.3% OPH SOLN 2.5 ML BOTTLE LEFT EYE SCH ×6 (02:23→21:00)
[2019-03-11] MEDS: DOCUSATE SODIUM 100 MG CAPSULE PO SCH ×2 (08:15→21:00)
[2019-03-11] MEDS: ENALAPRIL 20 MG TABLET PO SCH (08:16)
[2019-03-11] MEDS: TAMSULOSIN 0.4 MG CAPSULE PO SCH ×2 (08:16→22:12)
[2019-03-11] MEDS: MORPHINE 4 MG/1 ML VIAL IV PRN ×2 (09:37→16:32)
[2019-03-11] MEDS ORDERED: INFLUENZA VIRUS VACCINE 0.5 ML SYRINGE IM ONE (11:51)
[2019-03-12] MEDS: CIPROFLOXACIN 0.3% OPH SOLN 2.5 ML BOTTLE LEFT EYE SCH ×6 (02:44→21:00)
[2019-03-12 05:29] LABS: Basophils % 0.3 % (0.0-0.8); Eosinophils # 0.1 10*3/uL (0.0-0.87); Eosinophils % 1.4 % (0.00-10.9); Hematocrit 23.6 VOL% (35.7-47.0); Hemoglobin 7.5 GM/DL (12.0-16.0); Immature Granulocytes % 1.4 %; Immature Granulocytes Absolute 0.11 #; Lymphocytes # 1.5 10*3/uL (1.4-4.0); Lymphocytes % 19.5 % (21.3-54.2); Mean Corpuscular HGB Conc 31.8 GM/DL (32-36); Mean Corpuscular Volume 100.9 FL (87-102); Mean Platelet Volume 10.7 FL (9.6-12.0); Monocytes % 10.7 % (1.7-12.7); Neutrophils % 66.7 % (38.7-73.9); Platelet Count 213 T/CUMM (130-400); Red Blood Count 2.34 MC/CUMM (3.8-5.5); Red Cell Distribution Width 15.6 % (9.3-17.3); White Blood Count 7.9 T/CUMM (4-12)
[2019-03-12 05:49] LABS: Calcium 7.9 MG/DL (8.5-10.1); Osmolality,Calculated 296.4 MOS/KG (273-304)
[2019-03-12] MEDS: SODIUM CHLORIDE 0.9% 1,000 ML IV SCH (07:39)
[2019-03-12] MEDS: DOCUSATE SODIUM 100 MG CAPSULE PO SCH ×2 (09:18→20:43)
[2019-03-12] MEDS: TAMSULOSIN 0.4 MG CAPSULE PO SCH ×2 (09:18→20:43)
[2019-03-12] MEDS: ENALAPRIL 20 MG TABLET PO SCH (09:18)
[2019-03-12] MEDS: MORPHINE 4 MG/1 ML VIAL IV PRN ×2 (12:20→17:02)
[2019-03-12] MEDS ORDERED: FUROSEMIDE 40 MG/4 ML VIAL IV PRN (15:20)
[2019-03-12] MEDS ORDERED: SODIUM CHLORIDE 0.9% 1,000 ML IV PRN (15:20)
[2019-03-12] MEDS: POTASSIUM CHLORIDE 20 MEQ TABLET PO PRN ×4 (15:40→23:38)
[2019-03-12] MEDS: MAGNESIUM SULF RIDER 2 GM in PREMIX 1 EACH IV PRN (15:45)
[2019-03-12] MEDS: prednisoLONE ACETATE 1% OPH SUSP 5 ML BOTTLE BOTH EYES SCH ×2 (17:05→20:44)
[2019-03-13] MEDS: CIPROFLOXACIN 0.3% OPH SOLN 2.5 ML BOTTLE LEFT EYE SCH ×4 (01:05→14:56)
[2019-03-13 05:38] LABS: Basophils % 0.4 % (0.0-0.8); Eosinophils # 0.2 10*3/uL (0.0-0.87); Eosinophils % 1.7 % (0.00-10.9); Hematocrit 29.2 VOL% (35.7-47.0); Hemoglobin 9.5 GM/DL (12.0-16.0); Lymphocytes # 2.1 10*3/uL (1.4-4.0); Lymphocytes % 21.3 % (21.3-54.2); Mean Corpuscular HGB Conc 32.5 GM/DL (32-36); Mean Corpuscular Volume 99.3 FL (87-102); Mean Platelet Volume 10.5 FL (9.6-12.0); Monocytes % 9.7 % (1.7-12.7); NRBC # 0.02 10*3/uL; Neutrophils % 65.9 % (38.7-73.9); Platelet Count 222 T/CUMM (130-400); Red Blood Count 2.94 MC/CUMM (3.8-5.5); Red Cell Distribution Width 16.6 % (9.3-17.3)
[2019-03-13 05:54] LABS: Calcium 8.6 MG/DL (8.5-10.1)
[2019-03-13] MEDS: TAMSULOSIN 0.4 MG CAPSULE PO SCH ×2 (08:44→21:20)
[2019-03-13] MEDS: ENALAPRIL 20 MG TABLET PO SCH (08:44)
[2019-03-13] MEDS: DOCUSATE SODIUM 100 MG CAPSULE PO SCH ×2 (08:48→21:20)
[2019-03-13] MEDS: prednisoLONE ACETATE 1% OPH SUSP 5 ML BOTTLE BOTH EYES SCH ×3 (08:48→17:32)
[2019-03-13] MEDS: MORPHINE 4 MG/1 ML VIAL IV PRN ×2 (10:52→15:38)
[2019-03-13 14:05] LABS: Apearance,Urine CLOUDY (Clear); Bacteria,Urine Few /HPF (Few); Bilirubin,Urine Negative (Negative); Blood, Urine Small mg/dL (Negative); Glucose,Urine (UA) Negative (Negative); Ketones,Urine Negative (Negative); Mucus,Urine Occasional /LPF (Occasional); Nitrite,Urine Positive (Negative); Protein,Urine Negative; RBC,Urine 15 /HPF (0-4); Squamous Epithelial Cell,Urine Occasional /HPF (0-10); Urine Color Yellow (Yellow); Urine Specific Gravity 1.017 (1.001-1.035); Urine Urobilinogen < 2.0 EU/DL (0.2-1.0); WBC,Urine 384 /HPF (0-6)
[2019-03-13] MEDS: MINERAL OIL/PETROLATUM OPH OINT 3.5 GM TUBE BOTH EYES SCH ×4 (17:41→23:36)
[2019-03-13] MEDS ORDERED: BACITRACIN OPH OINT 3.5 GM TUBE BOTH EYES SCH (21:00)
[2019-03-14] MEDS: MINERAL OIL/PETROLATUM OPH OINT 3.5 GM TUBE BOTH EYES SCH ×7 (01:39→21:04)
[2019-03-14] MEDS: ENALAPRIL 20 MG TABLET PO SCH (10:04)
[2019-03-14] MEDS: TAMSULOSIN 0.4 MG CAPSULE PO SCH ×2 (10:04→21:11)
[2019-03-14] MEDS: DOCUSATE SODIUM 100 MG CAPSULE PO SCH ×2 (10:04→21:11)
[2019-03-14] MEDS: MORPHINE 4 MG/1 ML VIAL IV PRN ×3 (13:18→23:04)
[2019-03-14] MEDS: VANCOMYCIN INJ 1,250 MG in SODIUM CHLORIDE 0.9% 250 ML IV SCH (21:07)
[2019-03-15] MEDS: TAMSULOSIN 0.4 MG CAPSULE PO SCH ×3 (09:14→20:42)
[2019-03-15] MEDS: MINERAL OIL/PETROLATUM OPH OINT 3.5 GM TUBE BOTH EYES SCH ×3 (09:16→20:41)
[2019-03-15] MEDS: VANCOMYCIN INJ 1,250 MG in SODIUM CHLORIDE 0.9% 250 ML IV SCH ×2 (09:16→20:42)
[2019-03-15] MEDS: BACITRACIN OPH OINT 3.5 GM TUBE BOTH EYES SCH (09:17)
[2019-03-15] MEDS: ENALAPRIL 20 MG TABLET PO SCH (09:19)
[2019-03-15] MEDS: DOCUSATE SODIUM 100 MG CAPSULE PO SCH ×2 (09:19→20:42)
[2019-03-15] MEDS: MORPHINE 4 MG/1 ML VIAL IV PRN (13:37)
[2019-03-15 16:33] LABS: Albumin 2.5 G/DL (3.4-5.0); Bilirubin,Total 0.7 MG/DL (0.2-1.0); Calcium 8.2 MG/DL (8.5-10.1); Osmolality,Calculated 286.8 MOS/KG (273-304); Total Protein 5.3 G/DL (6.4-8.3)
[2019-03-15] MEDS ORDERED: DEXTROSE 10% 250 ML BAG IV PRN (16:56)
[2019-03-15] MEDS ORDERED: GLUCAGON 1 MG VIAL IM PRN (16:56)
[2019-03-15] MEDS: DULoxetine 20 MG CAPSULE PO SCH (20:42)
[2019-03-16] MEDS: TAMSULOSIN 0.4 MG CAPSULE PO SCH ×2 (09:34→20:10)
[2019-03-16] MEDS: BACITRACIN OPH OINT 3.5 GM TUBE BOTH EYES SCH (09:34)
[2019-03-16] MEDS: DOCUSATE SODIUM 100 MG CAPSULE PO SCH ×2 (09:34→20:09)
[2019-03-16] MEDS: ENALAPRIL 20 MG TABLET PO SCH (09:34)
[2019-03-16] MEDS: MINERAL OIL/PETROLATUM OPH OINT 3.5 GM TUBE BOTH EYES SCH ×3 (09:35→20:21)
[2019-03-16] MEDS: VANCOMYCIN INJ 1,250 MG in SODIUM CHLORIDE 0.9% 250 ML IV SCH ×2 (09:35→20:22)
[2019-03-16] MEDS: MORPHINE 4 MG/1 ML VIAL IV PRN (12:17)
[2019-03-16] MEDS: DULoxetine 20 MG CAPSULE PO SCH (20:09)
[2019-03-17] MEDS: VANCOMYCIN INJ 1,250 MG in SODIUM CHLORIDE 0.9% 250 ML IV SCH ×2 (11:15→20:48)
[2019-03-17] MEDS: MINERAL OIL/PETROLATUM OPH OINT 3.5 GM TUBE BOTH EYES SCH ×3 (11:15→20:48)
[2019-03-17] MEDS: DOCUSATE SODIUM 100 MG CAPSULE PO SCH ×2 (11:17→20:48)
[2019-03-17] MEDS: BACITRACIN OPH OINT 3.5 GM TUBE BOTH EYES SCH (11:17)
[2019-03-17] MEDS: TAMSULOSIN 0.4 MG CAPSULE PO SCH ×2 (11:17→20:48)
[2019-03-17] MEDS: ENALAPRIL 20 MG TABLET PO SCH (11:17)
[2019-03-17] MEDS: MORPHINE 4 MG/1 ML VIAL IV PRN ×2 (14:36→18:32)
[2019-03-17] MEDS: DULoxetine 20 MG CAPSULE PO SCH (20:48)
[2019-03-18] MEDS: MORPHINE 4 MG/1 ML VIAL IV PRN (00:16)
[2019-03-18 05:22] LABS: Basophils % 0.5 % (0.0-0.8); Eosinophils # 0.3 10*3/uL (0.0-0.87); Hematocrit 31.2 VOL% (35.7-47.0); Hemoglobin 9.9 GM/DL (12.0-16.0); Immature Granulocytes % 0.4 %; Immature Granulocytes Absolute 0.03 #; Lymphocytes # 1.7 10*3/uL (1.4-4.0); Lymphocytes % 20.5 % (21.3-54.2); Mean Corpuscular HGB Conc 31.7 GM/DL (32-36); Mean Corpuscular Volume 101.3 FL (87-102); Mean Platelet Volume 10.5 FL (9.6-12.0); Neutrophils % 62.6 % (38.7-73.9); Platelet Count 235 T/CUMM (130-400); Red Blood Count 3.08 MC/CUMM (3.8-5.5); Red Cell Distribution Width 15.8 % (9.3-17.3); White Blood Count 8.2 T/CUMM (4-12)
[2019-03-18 05:28] LABS: PT Patient Result 10.8 SECS (9.6-12.2)
[2019-03-18 05:52] LABS: Calcium 8.2 MG/DL (8.5-10.1); Osmolality,Calculated 281.1 MOS/KG (273-304)
[2019-03-18] MEDS ORDERED: LACTATED RINGERS 1,000 ML IV SCH (08:00)
[2019-03-18] MEDS: TAMSULOSIN 0.4 MG CAPSULE PO SCH ×2 (09:29→21:19)
[2019-03-18] MEDS: MINERAL OIL/PETROLATUM OPH OINT 3.5 GM TUBE BOTH EYES SCH ×3 (09:29→21:19)
[2019-03-18] MEDS: DOCUSATE SODIUM 100 MG CAPSULE PO SCH ×2 (09:29→21:19)
[2019-03-18] MEDS: BACITRACIN OPH OINT 3.5 GM TUBE BOTH EYES SCH (09:29)
[2019-03-18] MEDS: ENALAPRIL 20 MG TABLET PO SCH (09:30)
[2019-03-18] MEDS ORDERED: LIDOCAINE 2% 5 ML VIAL ONE (10:00)
[2019-03-18] MEDS ORDERED: propofoL 200 MG/20 ML VIAL IV ONE (10:00)
[2019-03-18] MEDS ORDERED: VANCOMYCIN INJ 1,250 MG in SODIUM CHLORIDE 0.9% 250 ML IV ONE (11:00)
[2019-03-18] MEDS: VANCOMYCIN INJ 1,250 MG in SODIUM CHLORIDE 0.9% 250 ML IV SCH (14:37)
[2019-03-18] MEDS: DULoxetine 20 MG CAPSULE PO SCH (21:19)
[2019-03-18] MEDS: traZODone 50 MG TABLET PO PRN (23:02)
[2019-03-19] MEDS: MORPHINE 4 MG/1 ML VIAL IV PRN ×4 (04:03→19:43)
[2019-03-19 07:20] LABS: Calcium 8.1 MG/DL (8.5-10.1); Osmolality,Calculated 276.4 MOS/KG (273-304)
[2019-03-19] MEDS: POTASSIUM CHLORIDE 20 MEQ TABLET PO PRN ×4 (07:44→14:36)
[2019-03-19] MEDS: ENALAPRIL 20 MG TABLET PO SCH (08:12)
[2019-03-19] MEDS: DOCUSATE SODIUM 100 MG CAPSULE PO SCH ×2 (08:12→21:43)
[2019-03-19] MEDS: TAMSULOSIN 0.4 MG CAPSULE PO SCH ×2 (08:12→21:43)
[2019-03-19] MEDS: MINERAL OIL/PETROLATUM OPH OINT 3.5 GM TUBE BOTH EYES SCH ×3 (08:13→21:43)
[2019-03-19] MEDS: BACITRACIN OPH OINT 3.5 GM TUBE BOTH EYES SCH (08:13)
[2019-03-19] MEDS: OFLOXACIN 0.3% OPH SOLN 5 ML BOTTLE LEFT EYE SCH (21:43)
[2019-03-19] MEDS: traZODone 50 MG TABLET PO PRN (21:43)
[2019-03-19] MEDS: DULoxetine 20 MG CAPSULE PO SCH (21:43)
[2019-03-20 04:40] LABS: Calcium 8.4 MG/DL (8.5-10.1); Osmolality,Calculated 280.4 MOS/KG (273-304); Prealbumin 10.2 MG/DL (20-40)
[2019-03-20] MEDS: TAMSULOSIN 0.4 MG CAPSULE PO SCH ×2 (09:58→22:06)
[2019-03-20] MEDS: MINERAL OIL/PETROLATUM OPH OINT 3.5 GM TUBE BOTH EYES SCH ×3 (09:58→22:05)
[2019-03-20] MEDS: MAGNESIUM SULF RIDER 2 GM in PREMIX 1 EACH IV PRN (09:58)
[2019-03-20] MEDS: OFLOXACIN 0.3% OPH SOLN 5 ML BOTTLE LEFT EYE SCH ×3 (09:58→22:05)
[2019-03-20] MEDS: ENALAPRIL 20 MG TABLET PO SCH (09:59)
[2019-03-20] MEDS: DOCUSATE SODIUM 100 MG CAPSULE PO SCH ×2 (09:59→22:06)
[2019-03-20] MEDS: BACITRACIN OPH OINT 3.5 GM TUBE BOTH EYES SCH (09:59)
[2019-03-20] MEDS: traZODone 50 MG TABLET PO PRN (22:06)
[2019-03-20] MEDS: DULoxetine 20 MG CAPSULE PO SCH (22:06)
[2019-03-21 06:15] LABS: Basophils % 0.3 % (0.0-0.8); Eosinophils # 0.2 10*3/uL (0.0-0.87); Eosinophils % 2.9 % (0.00-10.9); Hematocrit 29.6 VOL% (35.7-47.0); Hemoglobin 9.5 GM/DL (12.0-16.0); Immature Granulocytes % 0.3 %; Immature Granulocytes Absolute 0.02 #; Lymphocytes # 1.3 10*3/uL (1.4-4.0); Lymphocytes % 17.4 % (21.3-54.2); Mean Corpuscular HGB Conc 32.1 GM/DL (32-36); Mean Corpuscular Volume 100.3 FL (87-102); Mean Platelet Volume 10.7 FL (9.6-12.0); Monocytes % 11.5 % (1.7-12.7); Neutrophils % 67.6 % (38.7-73.9); Platelet Count 215 T/CUMM (130-400); Red Blood Count 2.95 MC/CUMM (3.8-5.5); Red Cell Distribution Width 15.9 % (9.3-17.3); White Blood Count 7.2 T/CUMM (4-12)
[2019-03-21] MEDS: ENALAPRIL 20 MG TABLET PO SCH (09:50)
[2019-03-21] MEDS: OFLOXACIN 0.3% OPH SOLN 5 ML BOTTLE LEFT EYE SCH ×3 (09:50→21:04)
[2019-03-21] MEDS: TAMSULOSIN 0.4 MG CAPSULE PO SCH ×2 (09:50→21:04)
[2019-03-21] MEDS: MINERAL OIL/PETROLATUM OPH OINT 3.5 GM TUBE BOTH EYES SCH ×3 (09:51→21:04)
[2019-03-21] MEDS: BACITRACIN OPH OINT 3.5 GM TUBE BOTH EYES SCH (09:55)
[2019-03-21] MEDS: DOCUSATE SODIUM 100 MG CAPSULE PO SCH ×2 (09:55→21:04)
[2019-03-21] MEDS: MORPHINE 4 MG/1 ML VIAL IV PRN (14:11)
[2019-03-21] MEDS: DULoxetine 20 MG CAPSULE PO SCH (21:04)
[2019-03-22] MEDS: DOCUSATE SODIUM 100 MG CAPSULE PO SCH ×2 (10:00→21:18)
[2019-03-22] MEDS: ENALAPRIL 20 MG TABLET PO SCH (10:12)
[2019-03-22] MEDS: TAMSULOSIN 0.4 MG CAPSULE PO SCH ×2 (10:12→21:19)
[2019-03-22] MEDS: OFLOXACIN 0.3% OPH SOLN 5 ML BOTTLE LEFT EYE SCH ×3 (10:12→21:20)
[2019-03-22] MEDS: MINERAL OIL/PETROLATUM OPH OINT 3.5 GM TUBE BOTH EYES SCH ×3 (10:13→21:20)
[2019-03-22] MEDS: BACITRACIN OPH OINT 3.5 GM TUBE BOTH EYES SCH (10:17)
[2019-03-22] MEDS: DULoxetine 20 MG CAPSULE PO SCH (21:19)
[2019-03-23] MEDS: ENALAPRIL 20 MG TABLET PO SCH (09:40)
[2019-03-23] MEDS: OFLOXACIN 0.3% OPH SOLN 5 ML BOTTLE LEFT EYE SCH ×3 (09:40→21:25)
[2019-03-23] MEDS: DOCUSATE SODIUM 100 MG CAPSULE PO SCH ×2 (09:40→21:24)
[2019-03-23] MEDS: TAMSULOSIN 0.4 MG CAPSULE PO SCH ×2 (09:41→21:25)
[2019-03-23] MEDS: BACITRACIN OPH OINT 3.5 GM TUBE BOTH EYES SCH (09:42)
[2019-03-23] MEDS: MINERAL OIL/PETROLATUM OPH OINT 3.5 GM TUBE BOTH EYES SCH ×3 (09:43→21:26)
[2019-03-23] MEDS: DULoxetine 20 MG CAPSULE PO SCH (21:25)
[2019-03-24 06:00] LABS: Calcium 8.7 MG/DL (8.5-10.1); Osmolality,Calculated 279.7 MOS/KG (273-304)
[2019-03-24] MEDS: TAMSULOSIN 0.4 MG CAPSULE PO SCH ×2 (08:34→21:54)
[2019-03-24] MEDS: ENALAPRIL 20 MG TABLET PO SCH (08:34)
[2019-03-24] MEDS: DOCUSATE SODIUM 100 MG CAPSULE PO SCH ×2 (08:35→21:54)
[2019-03-24] MEDS: OFLOXACIN 0.3% OPH SOLN 5 ML BOTTLE LEFT EYE SCH ×3 (08:35→21:54)
[2019-03-24] MEDS: BACITRACIN OPH OINT 3.5 GM TUBE BOTH EYES SCH (08:35)
[2019-03-24] MEDS: MINERAL OIL/PETROLATUM OPH OINT 3.5 GM TUBE BOTH EYES SCH ×3 (08:36→21:54)
[2019-03-24] MEDS: DULoxetine 20 MG CAPSULE PO SCH (21:54)
[2019-03-25] MEDS: ENALAPRIL 20 MG TABLET PO SCH (08:34)
[2019-03-25] MEDS: OFLOXACIN 0.3% OPH SOLN 5 ML BOTTLE LEFT EYE SCH ×3 (08:35→21:23)
[2019-03-25] MEDS: TAMSULOSIN 0.4 MG CAPSULE PO SCH ×2 (08:35→21:23)
[2019-03-25] MEDS: DOCUSATE SODIUM 100 MG CAPSULE PO SCH ×2 (08:36→21:23)
[2019-03-25] MEDS: MINERAL OIL/PETROLATUM OPH OINT 3.5 GM TUBE BOTH EYES SCH ×3 (08:36→21:23)
[2019-03-25] MEDS: BACITRACIN OPH OINT 3.5 GM TUBE BOTH EYES SCH (08:37)
[2019-03-25] MEDS: DULoxetine 20 MG CAPSULE PO SCH (21:23)
[2019-03-26 05:58] LABS: Basophils % 0.5 % (0.0-0.8); Eosinophils # 0.1 10*3/uL (0.0-0.87); Hematocrit 33.8 VOL% (35.7-47.0); Hemoglobin 10.9 GM/DL (12.0-16.0); Immature Granulocytes % 0.6 %; Immature Granulocytes Absolute 0.05 #; Lymphocytes # 1.3 10*3/uL (1.4-4.0); Mean Corpuscular HGB Conc 32.2 GM/DL (32-36); Mean Corpuscular Volume 99.4 FL (87-102); Mean Platelet Volume 10.3 FL (9.6-12.0); Monocytes % 15.2 % (1.7-12.7); Neutrophils % 66.7 % (38.7-73.9); Platelet Count 226 T/CUMM (130-400); Red Cell Distribution Width 15.3 % (9.3-17.3); White Blood Count 8.3 T/CUMM (4-12)
[2019-03-26 06:11] LABS: Bilirubin,Direct 0.14 MG/DL (0.0-0.20); Bilirubin,Indirect 0.5 MG/DL (0.0-1.0); Bilirubin,Total 0.6 MG/DL (0.2-1.0); Calcium 8.8 MG/DL (8.5-10.1); Osmolality,Calculated 280.5 MOS/KG (273-304); Total Protein 6.8 G/DL (6.4-8.3)
[2019-03-26 06:17] LABS: Folate 11.7 NG/ML (5.4-24.0)
[2019-03-26] MEDS: BACITRACIN OPH OINT 3.5 GM TUBE BOTH EYES SCH (09:38)
[2019-03-26] MEDS: OFLOXACIN 0.3% OPH SOLN 5 ML BOTTLE LEFT EYE SCH ×3 (09:40→22:30)
[2019-03-26] MEDS: DOCUSATE SODIUM 100 MG CAPSULE PO SCH ×2 (09:40→22:29)
[2019-03-26] MEDS: TAMSULOSIN 0.4 MG CAPSULE PO SCH ×2 (09:40→22:30)
[2019-03-26] MEDS: MINERAL OIL/PETROLATUM OPH OINT 3.5 GM TUBE BOTH EYES SCH ×3 (09:41→22:31)
[2019-03-26] MEDS: ENALAPRIL 20 MG TABLET PO SCH (09:41)
[2019-03-26] MEDS: DULoxetine 20 MG CAPSULE PO SCH (22:30)
[2019-03-27] MEDS: DOCUSATE SODIUM 100 MG CAPSULE PO SCH (11:43)
[2019-03-27] MEDS: ENALAPRIL 20 MG TABLET PO SCH (11:43)
[2019-03-27] MEDS: DOCUSATE SODIUM 100 MG/10 ML UDCUP PEG SCH ×2 (13:45→22:19)
[2019-03-27] MEDS: TAMSULOSIN 0.4 MG CAPSULE PO SCH ×2 (13:45→22:20)
[2019-03-27] MEDS ORDERED: DOCUSATE SODIUM 100 MG/10 ML UDCUP PO SCH (21:00)
[2019-03-27] MEDS: DULoxetine 20 MG CAPSULE PO SCH (22:19)
[2019-03-27] MEDS: MINERAL OIL/PETROLATUM OPH OINT 3.5 GM TUBE BOTH EYES SCH (22:26)
[2019-03-28] MEDS: OFLOXACIN 0.3% OPH SOLN 5 ML BOTTLE LEFT EYE SCH (08:21)
[2019-03-28] MEDS: MINERAL OIL/PETROLATUM OPH OINT 3.5 GM TUBE BOTH EYES SCH ×2 (08:21→21:01)
[2019-03-28] MEDS: BACITRACIN OPH OINT 3.5 GM TUBE BOTH EYES SCH (08:21)
[2019-03-28] MEDS: DOCUSATE SODIUM 100 MG/10 ML UDCUP PEG SCH ×2 (09:18→21:00)
[2019-03-28] MEDS: ENALAPRIL 20 MG TABLET PO SCH (09:18)
[2019-03-28] MEDS: TAMSULOSIN 0.4 MG CAPSULE PO SCH ×2 (09:21→21:00)
[2019-03-28] MEDS: DULoxetine 20 MG CAPSULE PO SCH (21:00)
[2019-03-29] MEDS: ENALAPRIL 20 MG TABLET PO SCH (10:25)
[2019-03-29] MEDS: DOCUSATE SODIUM 100 MG/10 ML UDCUP PEG SCH ×2 (10:25→22:12)
[2019-03-29] MEDS: TAMSULOSIN 0.4 MG CAPSULE PO SCH ×2 (10:26→22:12)
[2019-03-29] MEDS: DULoxetine 20 MG CAPSULE PO SCH (22:12)
[2019-03-29] MEDS: MINERAL OIL/PETROLATUM OPH OINT 3.5 GM TUBE BOTH EYES SCH (22:13)
[2019-03-30 06:22] LABS: Basophils % 0.5 % (0.0-0.8); Eosinophils # 0.4 10*3/uL (0.0-0.87); Eosinophils % 4.3 % (0.00-10.9); Hematocrit 35.7 VOL% (35.7-47.0); Hemoglobin 11.4 GM/DL (12.0-16.0); Immature Granulocytes % 0.4 %; Immature Granulocytes Absolute 0.03 #; Lymphocytes # 2.1 10*3/uL (1.4-4.0); Lymphocytes % 24.4 % (21.3-54.2); Mean Corpuscular HGB Conc 31.9 GM/DL (32-36); Mean Corpuscular Volume 100.6 FL (87-102); Mean Platelet Volume 10.2 FL (9.6-12.0); Monocytes % 12.4 % (1.7-12.7); Platelet Count 266 T/CUMM (130-400); Red Blood Count 3.55 MC/CUMM (3.8-5.5); Red Cell Distribution Width 14.2 % (9.3-17.3); White Blood Count 8.5 T/CUMM (4-12)
[2019-03-30 06:30] LABS: Calcium 9.2 MG/DL (8.5-10.1); Osmolality,Calculated 279.8 MOS/KG (273-304)
[2019-03-30] MEDS: ENALAPRIL 20 MG TABLET PO SCH (08:18)
[2019-03-30] MEDS: DOCUSATE SODIUM 100 MG/10 ML UDCUP PEG SCH ×2 (08:19→22:10)
[2019-03-30] MEDS: TAMSULOSIN 0.4 MG CAPSULE PO SCH ×2 (08:19→22:10)
[2019-03-30] MEDS: MINERAL OIL/PETROLATUM OPH OINT 3.5 GM TUBE BOTH EYES SCH (22:10)
[2019-03-31 06:34] LABS: Calcium 9.2 MG/DL (8.5-10.1); Osmolality,Calculated 278.8 MOS/KG (273-304); Prealbumin 22.6 MG/DL (20-40)
[2019-03-31] MEDS: TAMSULOSIN 0.4 MG CAPSULE PO SCH ×2 (08:35→22:25)
[2019-03-31] MEDS: DOCUSATE SODIUM 100 MG/10 ML UDCUP PEG SCH ×2 (08:35→22:25)
[2019-03-31] MEDS: ENALAPRIL 20 MG TABLET PO SCH (08:35)
[2019-03-31] MEDS: MINERAL OIL/PETROLATUM OPH OINT 3.5 GM TUBE BOTH EYES SCH (22:25)
[2019-04-01] MEDS: DOCUSATE SODIUM 100 MG/10 ML UDCUP PEG SCH ×2 (09:36→22:33)
[2019-04-01] MEDS: ENALAPRIL 20 MG TABLET PO SCH (09:36)
[2019-04-01] MEDS: TAMSULOSIN 0.4 MG CAPSULE PO SCH ×2 (09:36→22:33)
[2019-04-02] MEDS: MINERAL OIL/PETROLATUM OPH OINT 3.5 GM TUBE BOTH EYES SCH ×2 (01:07→20:31)
[2019-04-02] MEDS: DOCUSATE SODIUM 100 MG/10 ML UDCUP PEG SCH ×2 (08:44→20:31)
[2019-04-02] MEDS: TAMSULOSIN 0.4 MG CAPSULE PO SCH ×2 (08:47→20:31)
[2019-04-02] MEDS: ENALAPRIL 20 MG TABLET PO SCH (08:47)
[2019-04-03 04:24] LABS: Basophils # 0.1 10*3/uL (0.0-0.2); Basophils % 0.7 % (0.0-0.8); Eosinophils # 0.3 10*3/uL (0.0-0.87); Eosinophils % 3.3 % (0.00-10.9); Hematocrit 34.5 VOL% (35.7-47.0); Hemoglobin 11.3 GM/DL (12.0-16.0); Immature Granulocytes % 0.3 %; Immature Granulocytes Absolute 0.03 #; Lymphocytes # 2.6 10*3/uL (1.4-4.0); Lymphocytes % 29.9 % (21.3-54.2); Mean Corpuscular HGB Conc 32.8 GM/DL (32-36); Mean Platelet Volume 10.1 FL (9.6-12.0); Monocytes % 10.7 % (1.7-12.7); Neutrophils % 55.1 % (38.7-73.9); Platelet Count 304 T/CUMM (130-400); Red Blood Count 3.52 MC/CUMM (3.8-5.5); Red Cell Distribution Width 14.1 % (9.3-17.3); White Blood Count 8.7 T/CUMM (4-12)
[2019-04-03 04:42] LABS: Calcium 8.5 MG/DL (8.5-10.1); Osmolality,Calculated 277.8 MOS/KG (273-304)
[2019-04-03] MEDS: TAMSULOSIN 0.4 MG CAPSULE PO SCH ×2 (10:07→21:04)
[2019-04-03] MEDS: DOCUSATE SODIUM 100 MG/10 ML UDCUP PEG SCH ×2 (10:07→21:04)
[2019-04-03] MEDS: ENALAPRIL 20 MG TABLET PO SCH (10:07)
[2019-04-03] MEDS: MINERAL OIL/PETROLATUM OPH OINT 3.5 GM TUBE BOTH EYES SCH (21:05)
[2019-04-04] MEDS: TAMSULOSIN 0.4 MG CAPSULE PO SCH ×2 (10:14→20:27)
[2019-04-04] MEDS: ENALAPRIL 20 MG TABLET PO SCH (10:14)
[2019-04-04] MEDS: DOCUSATE SODIUM 100 MG/10 ML UDCUP PEG SCH ×2 (10:14→20:27)
[2019-04-04] MEDS: MINERAL OIL/PETROLATUM OPH OINT 3.5 GM TUBE BOTH EYES SCH ×2 (20:28→20:37)
[2019-04-05] MEDS: TAMSULOSIN 0.4 MG CAPSULE PO SCH ×2 (09:39→20:52)
[2019-04-05] MEDS: ENALAPRIL 20 MG TABLET PO SCH (09:39)
[2019-04-05] MEDS: DOCUSATE SODIUM 100 MG/10 ML UDCUP PEG SCH ×2 (09:39→20:52)
[2019-04-05] MEDS: MINERAL OIL/PETROLATUM OPH OINT 3.5 GM TUBE BOTH EYES SCH (20:52)
[2019-04-06] MEDS: ENALAPRIL 20 MG TABLET PO SCH (09:49)
[2019-04-06] MEDS: TAMSULOSIN 0.4 MG CAPSULE PO SCH ×2 (09:49→21:03)
[2019-04-06] MEDS: DOCUSATE SODIUM 100 MG/10 ML UDCUP PEG SCH ×2 (09:49→21:03)
[2019-04-06] MEDS: MINERAL OIL/PETROLATUM OPH OINT 3.5 GM TUBE BOTH EYES SCH (21:03)
[2019-04-07 04:47] LABS: Prealbumin 30.6 MG/DL (20-40)
[2019-04-07] MEDS: ENALAPRIL 20 MG TABLET PO SCH (08:21)
[2019-04-07] MEDS: TAMSULOSIN 0.4 MG CAPSULE PO SCH ×2 (08:22→22:44)
[2019-04-07] MEDS: DOCUSATE SODIUM 100 MG/10 ML UDCUP PEG SCH ×2 (08:22→22:44)
[2019-04-07] MEDS: MINERAL OIL/PETROLATUM OPH OINT 3.5 GM TUBE BOTH EYES SCH (22:44)
[2019-04-08] MEDS: TAMSULOSIN 0.4 MG CAPSULE PO SCH ×2 (09:07→21:24)
[2019-04-08] MEDS: ENALAPRIL 20 MG TABLET PO SCH (09:07)
[2019-04-08] MEDS: DOCUSATE SODIUM 100 MG/10 ML UDCUP PEG SCH ×2 (09:07→21:23)
[2019-04-08] MEDS: MINERAL OIL/PETROLATUM OPH OINT 3.5 GM TUBE BOTH EYES SCH (21:24)
[2019-04-09 06:02] LABS: Basophils # 0.1 10*3/uL (0.0-0.2); Basophils % 0.8 % (0.0-0.8); Eosinophils # 0.3 10*3/uL (0.0-0.87); Eosinophils % 3.2 % (0.00-10.9); Hematocrit 35.9 VOL% (35.7-47.0); Hemoglobin 11.7 GM/DL (12.0-16.0); Immature Granulocytes % 0.3 %; Immature Granulocytes Absolute 0.03 #; Lymphocytes # 2.4 10*3/uL (1.4-4.0); Lymphocytes % 27.9 % (21.3-54.2); Mean Corpuscular HGB Conc 32.6 GM/DL (32-36); Monocytes % 11.7 % (1.7-12.7); Neutrophils % 56.1 % (38.7-73.9); Platelet Count 256 T/CUMM (130-400); Red Blood Count 3.59 MC/CUMM (3.8-5.5); Red Cell Distribution Width 13.8 % (9.3-17.3); White Blood Count 8.8 T/CUMM (4-12)
[2019-04-09 06:18] LABS: Calcium 8.7 MG/DL (8.5-10.1); Osmolality,Calculated 277.8 MOS/KG (273-304)
[2019-04-09] MEDS: TAMSULOSIN 0.4 MG CAPSULE PO SCH ×2 (09:02→21:03)
[2019-04-09] MEDS: ENALAPRIL 20 MG TABLET PO SCH (09:02)
[2019-04-09] MEDS: DOCUSATE SODIUM 100 MG/10 ML UDCUP PEG SCH ×2 (09:02→21:03)
[2019-04-09] MEDS: MINERAL OIL/PETROLATUM OPH OINT 3.5 GM TUBE BOTH EYES SCH (21:03)
[2019-04-10] MEDS: ENALAPRIL 20 MG TABLET PO SCH (11:15)
[2019-04-10] MEDS: DOCUSATE SODIUM 100 MG/10 ML UDCUP PEG SCH ×2 (11:15→20:48)
[2019-04-10] MEDS: TAMSULOSIN 0.4 MG CAPSULE PO SCH ×2 (11:16→20:48)
[2019-04-10] MEDS: MINERAL OIL/PETROLATUM OPH OINT 3.5 GM TUBE BOTH EYES SCH (20:48)
[2019-04-11 06:15] LABS: Calcium 8.6 MG/DL (8.5-10.1)
[2019-04-11] MEDS: DOCUSATE SODIUM 100 MG/10 ML UDCUP PEG SCH ×2 (09:38→21:43)
[2019-04-11] MEDS: TAMSULOSIN 0.4 MG CAPSULE PO SCH ×2 (09:38→21:43)
[2019-04-11] MEDS: ENALAPRIL 20 MG TABLET PO SCH (09:38)
[2019-04-11] MEDS: MINERAL OIL/PETROLATUM OPH OINT 3.5 GM TUBE BOTH EYES SCH (21:43)
[2019-04-12] MEDS: TAMSULOSIN 0.4 MG CAPSULE PO SCH ×2 (09:31→21:35)
[2019-04-12] MEDS: ENALAPRIL 20 MG TABLET PO SCH (09:31)
[2019-04-12] MEDS: DOCUSATE SODIUM 100 MG/10 ML UDCUP PEG SCH ×2 (09:31→21:35)
[2019-04-13] MEDS: MINERAL OIL/PETROLATUM OPH OINT 3.5 GM TUBE BOTH EYES SCH ×2 (04:25→21:24)
[2019-04-13] MEDS: TAMSULOSIN 0.4 MG CAPSULE PO SCH ×2 (09:43→21:24)
[2019-04-13] MEDS: ENALAPRIL 20 MG TABLET PO SCH (09:43)
[2019-04-13] MEDS: DOCUSATE SODIUM 100 MG/10 ML UDCUP PEG SCH ×2 (09:44→21:24)
[2019-04-14 05:32] LABS: Basophils # 0.1 10*3/uL (0.0-0.2); Basophils % 0.9 % (0.0-0.8); Eosinophils # 0.5 10*3/uL (0.0-0.87); Eosinophils % 5.8 % (0.00-10.9); Hematocrit 35.5 VOL% (35.7-47.0); Hemoglobin 11.5 GM/DL (12.0-16.0); Immature Granulocytes % 0.3 %; Immature Granulocytes Absolute 0.02 #; Lymphocytes # 2.4 10*3/uL (1.4-4.0); Lymphocytes % 30.1 % (21.3-54.2); Mean Corpuscular HGB Conc 32.4 GM/DL (32-36); Mean Corpuscular Volume 98.9 FL (87-102); Mean Platelet Volume 10.2 FL (9.6-12.0); Monocytes % 11.5 % (1.7-12.7); Neutrophils % 51.4 % (38.7-73.9); Platelet Count 208 T/CUMM (130-400); Red Blood Count 3.59 MC/CUMM (3.8-5.5); Red Cell Distribution Width 13.6 % (9.3-17.3); White Blood Count 7.9 T/CUMM (4-12)
[2019-04-14 05:47] LABS: Calcium 8.7 MG/DL (8.5-10.1)
[2019-04-14] MEDS: TAMSULOSIN 0.4 MG CAPSULE PO SCH ×2 (08:59→20:33)
[2019-04-14] MEDS: DOCUSATE SODIUM 100 MG/10 ML UDCUP PEG SCH ×2 (08:59→20:33)
[2019-04-14] MEDS: ENALAPRIL 20 MG TABLET PO SCH (09:00)
[2019-04-14] MEDS: MINERAL OIL/PETROLATUM OPH OINT 3.5 GM TUBE BOTH EYES SCH (20:33)
[2019-04-15] MEDS: ENALAPRIL 20 MG TABLET PO SCH (08:34)
[2019-04-15] MEDS: DOCUSATE SODIUM 100 MG/10 ML UDCUP PEG SCH ×2 (08:34→20:57)
[2019-04-15] MEDS: TAMSULOSIN 0.4 MG CAPSULE PO SCH ×2 (08:34→20:57)
[2019-04-15] MEDS: MENTHOL/ZINC OXIDE OINT 71 GM JAR TOP SCH ×2 (15:16→22:25)
[2019-04-15] MEDS: MINERAL OIL/PETROLATUM OPH OINT 3.5 GM TUBE BOTH EYES SCH (20:57)
[2019-04-15] MEDS: TRIFLUOPERAZINE PEG SCH (20:57)
[2019-04-15] MEDS: traZODone 50 MG TABLET PO SCH (20:57)
[2019-04-16] MEDS: ENALAPRIL 20 MG TABLET PO SCH (09:34)
[2019-04-16] MEDS: DOCUSATE SODIUM 100 MG/10 ML UDCUP PEG SCH ×2 (09:34→21:50)
[2019-04-16] MEDS: TAMSULOSIN 0.4 MG CAPSULE PO SCH ×2 (09:34→21:50)
[2019-04-16] MEDS: BENZTROPINE 1 MG TABLET PO SCH (09:34)
[2019-04-16] MEDS: TRIFLUOPERAZINE PEG SCH ×2 (09:34→21:50)
[2019-04-16] MEDS: MENTHOL/ZINC OXIDE OINT 71 GM JAR TOP SCH ×2 (11:03→22:17)
[2019-04-16] MEDS: MINERAL OIL/PETROLATUM OPH OINT 3.5 GM TUBE BOTH EYES SCH (21:50)
[2019-04-16] MEDS: traZODone 50 MG TABLET PO SCH (21:50)
[2019-04-17] MEDS: BENZTROPINE 1 MG TABLET PO SCH (08:30)
[2019-04-17] MEDS: TRIFLUOPERAZINE PEG SCH ×2 (08:31→20:29)
[2019-04-17] MEDS: ENALAPRIL 20 MG TABLET PO SCH (08:31)
[2019-04-17] MEDS: MENTHOL/ZINC OXIDE OINT 71 GM JAR TOP SCH ×2 (08:31→20:29)
[2019-04-17] MEDS: DOCUSATE SODIUM 100 MG/10 ML UDCUP PEG SCH ×2 (08:31→20:29)
[2019-04-17] MEDS: TAMSULOSIN 0.4 MG CAPSULE PO SCH ×2 (08:31→20:29)
[2019-04-17] MEDS: traZODone 50 MG TABLET PO SCH (20:28)
[2019-04-17] MEDS: MINERAL OIL/PETROLATUM OPH OINT 3.5 GM TUBE BOTH EYES SCH (20:29)
[2019-04-18] MEDS: DOCUSATE SODIUM 100 MG/10 ML UDCUP PEG SCH ×2 (11:12→21:54)
[2019-04-18] MEDS: BENZTROPINE 1 MG TABLET PO SCH (11:12)
[2019-04-18] MEDS: ENALAPRIL 20 MG TABLET PO SCH (11:12)
[2019-04-18] MEDS: TAMSULOSIN 0.4 MG CAPSULE PO SCH ×2 (11:13→21:54)
[2019-04-18] MEDS: TRIFLUOPERAZINE PEG SCH ×2 (11:15→21:54)
[2019-04-18] MEDS: MENTHOL/ZINC OXIDE OINT 71 GM JAR TOP SCH ×2 (11:30→21:55)
[2019-04-18] MEDS: traZODone 50 MG TABLET PO SCH (21:54)
[2019-04-18] MEDS: MINERAL OIL/PETROLATUM OPH OINT 3.5 GM TUBE BOTH EYES SCH (21:55)
[2019-04-19] MEDS: TAMSULOSIN 0.4 MG CAPSULE PO SCH ×2 (10:17→21:01)
[2019-04-19] MEDS: BENZTROPINE 1 MG TABLET PO SCH (10:17)
[2019-04-19] MEDS: DOCUSATE SODIUM 100 MG/10 ML UDCUP PEG SCH ×2 (10:17→21:01)
[2019-04-19] MEDS: TRIFLUOPERAZINE PEG SCH ×2 (10:18→21:01)
[2019-04-19] MEDS: MENTHOL/ZINC OXIDE OINT 71 GM JAR TOP SCH ×2 (10:21→21:01)
[2019-04-19] MEDS: ENALAPRIL 20 MG TABLET PO SCH (10:30)
[2019-04-19] MEDS ORDERED: BENZTROPINE 2 MG/2 ML AMP IM ONE (15:13)
[2019-04-19] MEDS ORDERED: SODIUM CHLORIDE 0.9% 1,000 ML IV SCH (15:30)
[2019-04-19 16:11] LABS: Basophils # 0.1 10*3/uL (0.0-0.2); Basophils % 0.7 % (0.0-0.8); Eosinophils # 0.4 10*3/uL (0.0-0.87); Eosinophils % 5.2 % (0.00-10.9); Hematocrit 33.7 VOL% (35.7-47.0); Hemoglobin 10.9 GM/DL (12.0-16.0); Immature Granulocytes % 0.1 %; Immature Granulocytes Absolute 0.01 #; Lymphocytes # 2.2 10*3/uL (1.4-4.0); Lymphocytes % 30.4 % (21.3-54.2); Mean Corpuscular HGB Conc 32.3 GM/DL (32-36); Mean Corpuscular Volume 99.7 FL (87-102); Mean Platelet Volume 10.1 FL (9.6-12.0); Monocytes % 9.9 % (1.7-12.7); Neutrophils % 53.7 % (38.7-73.9); Platelet Count 189 T/CUMM (130-400); Red Blood Count 3.38 MC/CUMM (3.8-5.5); Red Cell Distribution Width 13.5 % (9.3-17.3); White Blood Count 7.2 T/CUMM (4-12)
[2019-04-19 16:29] LABS: Calcium 8.6 MG/DL (8.5-10.1); Osmolality,Calculated 285.4 MOS/KG (273-304)
[2019-04-19] MEDS: MINERAL OIL/PETROLATUM OPH OINT 3.5 GM TUBE BOTH EYES SCH (21:01)
[2019-04-20 07:11] LABS: Apearance,Urine CLOUDY (Clear); Bacteria,Urine Many /HPF (Few); Bilirubin,Urine Negative (Negative); Blood, Urine Negative (Negative); Glucose,Urine (UA) Negative (Negative); Ketones,Urine Negative (Negative); Nitrite,Urine Negative (Negative); Protein,Urine Negative; RBC,Urine 25 /HPF (0-4); Squamous Epithelial Cell,Urine Occasional /HPF (0-10); Urine Color Yellow (Yellow); Urine Specific Gravity 1.008 (1.001-1.035); Urine Urobilinogen < 2.0 EU/DL (0.2-1.0); WBC,Urine 112 /HPF (0-6)
[2019-04-20 07:40] LABS: Alanine Aminotransferase 22 U/L (13-56); Albumin 2.6 G/DL (3.4-5.0); Alkaline Phosphatase 162 U/L (45-117); Aspartate Amino Transferase 13 U/L (0-37); Bilirubin,Direct < 0.100 MG/DL (0.0-0.20); Bilirubin,Indirect 0.3 MG/DL (0.0-1.0); Bilirubin,Total < 0.39 MG/DL (0.2-1.0); Total Protein 5.8 G/DL (6.4-8.3)
[2019-04-20] MEDS: BENZTROPINE 1 MG TABLET PO SCH (08:48)
[2019-04-20] MEDS: TRIFLUOPERAZINE PEG SCH ×2 (08:48→21:19)
[2019-04-20] MEDS: DOCUSATE SODIUM 100 MG/10 ML UDCUP PEG SCH ×2 (08:48→21:19)
[2019-04-20] MEDS: TAMSULOSIN 0.4 MG CAPSULE PO SCH ×2 (08:48→21:19)
[2019-04-20] MEDS: MENTHOL/ZINC OXIDE OINT 71 GM JAR TOP SCH ×2 (08:49→21:19)
[2019-04-20] MEDS: MINERAL OIL/PETROLATUM OPH OINT 3.5 GM TUBE BOTH EYES SCH (21:19)
[2019-04-21] MEDS: DOCUSATE SODIUM 100 MG/10 ML UDCUP PEG SCH ×2 (09:52→21:59)
[2019-04-21] MEDS: MENTHOL/ZINC OXIDE OINT 71 GM JAR TOP SCH ×2 (09:52→21:59)
[2019-04-21] MEDS: TRIFLUOPERAZINE PEG SCH ×2 (09:52→22:00)
[2019-04-21] MEDS: BENZTROPINE 1 MG TABLET PO SCH (09:52)
[2019-04-21] MEDS: TAMSULOSIN 0.4 MG CAPSULE PO SCH ×2 (09:52→21:59)
[2019-04-21] MEDS: MINERAL OIL/PETROLATUM OPH OINT 3.5 GM TUBE BOTH EYES SCH (22:00)
[2019-04-22] MEDS: TAMSULOSIN 0.4 MG CAPSULE PO SCH ×2 (09:20→22:18)
[2019-04-22] MEDS: BENZTROPINE 1 MG TABLET PO SCH (09:32)
[2019-04-22] MEDS: TRIFLUOPERAZINE PEG SCH ×2 (09:32→22:17)
[2019-04-22] MEDS: DOCUSATE SODIUM 100 MG/10 ML UDCUP PEG SCH ×2 (09:32→22:18)
[2019-04-22] MEDS: MENTHOL/ZINC OXIDE OINT 71 GM JAR TOP SCH ×2 (09:32→22:18)
[2019-04-22] MEDS: CIPROFLOXACIN 500 MG TABLET PO SCH (22:18)
[2019-04-22] MEDS: MINERAL OIL/PETROLATUM OPH OINT 3.5 GM TUBE BOTH EYES SCH (22:19)
[2019-04-23] MEDS: DOCUSATE SODIUM 100 MG/10 ML UDCUP PEG SCH ×2 (08:34→20:54)
[2019-04-23] MEDS: TAMSULOSIN 0.4 MG CAPSULE PO SCH ×2 (08:35→20:54)
[2019-04-23] MEDS: TRIFLUOPERAZINE PEG SCH ×2 (08:35→20:55)
[2019-04-23] MEDS: BENZTROPINE 1 MG TABLET PO SCH (08:35)
[2019-04-23] MEDS: MENTHOL/ZINC OXIDE OINT 71 GM JAR TOP SCH ×2 (08:35→20:54)
[2019-04-23] MEDS: lisinopriL 10 MG TABLET PO SCH (08:35)
[2019-04-23] MEDS: CIPROFLOXACIN 500 MG TABLET PO SCH ×2 (08:35→20:53)
[2019-04-23] MEDS: MINERAL OIL/PETROLATUM OPH OINT 3.5 GM TUBE BOTH EYES SCH (20:54)
[2019-04-24 05:30] LABS: Calcium 8.7 MG/DL (8.5-10.1); Prealbumin 19.6 MG/DL (20-40)
[2019-04-24] MEDS: TAMSULOSIN 0.4 MG CAPSULE PO SCH ×2 (08:46→22:29)
[2019-04-24] MEDS: DOCUSATE SODIUM 100 MG/10 ML UDCUP PEG SCH ×2 (08:46→22:28)
[2019-04-24] MEDS: MENTHOL/ZINC OXIDE OINT 71 GM JAR TOP SCH ×2 (08:46→22:31)
[2019-04-24] MEDS: MAGNESIUM OXIDE 400 MG TABLET PO SCH ×2 (08:46→22:29)
[2019-04-24] MEDS: BENZTROPINE 1 MG TABLET PO SCH (08:46)
[2019-04-24] MEDS: lisinopriL 10 MG TABLET PO SCH (08:46)
[2019-04-24] MEDS: CIPROFLOXACIN 500 MG TABLET PO SCH ×2 (08:46→22:28)
[2019-04-24] MEDS: TRIFLUOPERAZINE PEG SCH ×2 (08:53→22:29)
[2019-04-24] MEDS: MINERAL OIL/PETROLATUM OPH OINT 3.5 GM TUBE BOTH EYES SCH (22:30)
[2019-04-25] MEDS: lisinopriL 10 MG TABLET PO SCH (08:46)
[2019-04-25] MEDS: CIPROFLOXACIN 500 MG TABLET PO SCH ×2 (08:46→20:51)
[2019-04-25] MEDS: ENOXAPARIN 40 MG/0.4 ML SYRINGE SUBCUT SCH (08:46)
[2019-04-25] MEDS: DOCUSATE SODIUM 100 MG/10 ML UDCUP PEG SCH ×2 (08:46→20:51)
[2019-04-25] MEDS: BENZTROPINE 1 MG TABLET PO SCH (08:46)
[2019-04-25] MEDS: TAMSULOSIN 0.4 MG CAPSULE PO SCH ×2 (08:46→20:51)
[2019-04-25] MEDS: MAGNESIUM OXIDE 400 MG TABLET PO SCH ×2 (08:46→20:51)
[2019-04-25] MEDS: MENTHOL/ZINC OXIDE OINT 71 GM JAR TOP SCH ×2 (08:46→20:51)
[2019-04-25] MEDS: TRIFLUOPERAZINE PEG SCH ×2 (08:47→20:52)
[2019-04-25] MEDS: MINERAL OIL/PETROLATUM OPH OINT 3.5 GM TUBE BOTH EYES SCH (20:52)
[2019-04-26] MEDS: CIPROFLOXACIN 500 MG TABLET PO SCH ×2 (09:07→20:57)
[2019-04-26] MEDS: lisinopriL 10 MG TABLET PO SCH (09:07)
[2019-04-26] MEDS: DOCUSATE SODIUM 100 MG/10 ML UDCUP PEG SCH ×2 (09:08→20:57)
[2019-04-26] MEDS: ENOXAPARIN 40 MG/0.4 ML SYRINGE SUBCUT SCH (09:08)
[2019-04-26] MEDS: TAMSULOSIN 0.4 MG CAPSULE PO SCH ×2 (09:08→20:57)
[2019-04-26] MEDS: MAGNESIUM OXIDE 400 MG TABLET PO SCH ×2 (09:08→20:57)
[2019-04-26] MEDS: MENTHOL/ZINC OXIDE OINT 71 GM JAR TOP SCH ×2 (09:08→20:57)
[2019-04-26] MEDS: BENZTROPINE 1 MG TABLET PO SCH (09:08)
[2019-04-26] MEDS: TRIFLUOPERAZINE PEG SCH ×2 (09:08→20:57)
[2019-04-26] MEDS: MINERAL OIL/PETROLATUM OPH OINT 3.5 GM TUBE BOTH EYES SCH (20:57)
[2019-04-27] MEDS: BENZTROPINE 1 MG TABLET PO SCH (11:23)
[2019-04-27] MEDS: ENOXAPARIN 40 MG/0.4 ML SYRINGE SUBCUT SCH (11:23)
[2019-04-27] MEDS: MENTHOL/ZINC OXIDE OINT 71 GM JAR TOP SCH ×2 (11:23→21:06)
[2019-04-27] MEDS: TAMSULOSIN 0.4 MG CAPSULE PO SCH ×2 (11:23→21:06)
[2019-04-27] MEDS: CIPROFLOXACIN 500 MG TABLET PO SCH ×2 (11:23→21:06)
[2019-04-27] MEDS: DOCUSATE SODIUM 100 MG/10 ML UDCUP PEG SCH ×2 (11:23→21:06)
[2019-04-27] MEDS: lisinopriL 10 MG TABLET PO SCH (11:24)
[2019-04-27] MEDS: MAGNESIUM OXIDE 400 MG TABLET PO SCH ×2 (11:24→21:06)
[2019-04-27] MEDS: TRIFLUOPERAZINE PEG SCH ×2 (12:59→21:06)
[2019-04-27] MEDS: MINERAL OIL/PETROLATUM OPH OINT 3.5 GM TUBE BOTH EYES SCH (21:06)
[2019-04-28 06:28] LABS: Osmolality,Calculated 284.1 MOS/KG (273-304)
[2019-04-28] MEDS: BENZTROPINE 1 MG TABLET PO SCH (09:40)
[2019-04-28] MEDS: CIPROFLOXACIN 500 MG TABLET PO SCH ×2 (09:40→21:56)
[2019-04-28] MEDS: lisinopriL 10 MG TABLET PO SCH (09:40)
[2019-04-28] MEDS: MAGNESIUM OXIDE 400 MG TABLET PO SCH ×2 (09:40→21:56)
[2019-04-28] MEDS: DOCUSATE SODIUM 100 MG/10 ML UDCUP PEG SCH ×2 (09:40→21:56)
[2019-04-28] MEDS: ENOXAPARIN 40 MG/0.4 ML SYRINGE SUBCUT SCH (09:40)
[2019-04-28] MEDS: TAMSULOSIN 0.4 MG CAPSULE PO SCH ×2 (09:40→21:56)
[2019-04-28] MEDS: TRIFLUOPERAZINE PEG SCH ×2 (09:41→21:56)
[2019-04-28] MEDS: MENTHOL/ZINC OXIDE OINT 71 GM JAR TOP SCH ×2 (09:41→21:56)
[2019-04-28] MEDS: MINERAL OIL/PETROLATUM OPH OINT 3.5 GM TUBE BOTH EYES SCH (22:03)
[2019-04-29 05:52] LABS: Basophils # 0.1 10*3/uL (0.0-0.2); Basophils % 0.7 % (0.0-0.8); Eosinophils # 0.3 10*3/uL (0.0-0.87); Eosinophils % 3.4 % (0.00-10.9); Hematocrit 34.7 VOL% (35.7-47.0); Hemoglobin 11.6 GM/DL (12.0-16.0); Immature Granulocytes % 0.4 %; Immature Granulocytes Absolute 0.03 #; Lymphocytes # 2.6 10*3/uL (1.4-4.0); Lymphocytes % 31.4 % (21.3-54.2); Mean Corpuscular HGB Conc 33.4 GM/DL (32-36); Mean Corpuscular Volume 97.7 FL (87-102); Mean Platelet Volume 10.8 FL (9.6-12.0); Monocytes % 9.7 % (1.7-12.7); Neutrophils % 54.4 % (38.7-73.9); Platelet Count 206 T/CUMM (130-400); Red Blood Count 3.55 MC/CUMM (3.8-5.5); Red Cell Distribution Width 13.2 % (9.3-17.3); White Blood Count 8.2 T/CUMM (4-12)
[2019-04-29 06:11] LABS: Hypochromasia 1+; Platelet Estimate Adequate
[2019-04-29] MEDS: DOCUSATE SODIUM 100 MG/10 ML UDCUP PEG SCH ×2 (09:41→22:24)
[2019-04-29] MEDS: lisinopriL 10 MG TABLET PO SCH (09:41)
[2019-04-29] MEDS: MENTHOL/ZINC OXIDE OINT 71 GM JAR TOP SCH ×2 (09:42→22:25)
[2019-04-29] MEDS: TAMSULOSIN 0.4 MG CAPSULE PO SCH ×2 (09:42→22:25)
[2019-04-29] MEDS: MAGNESIUM OXIDE 400 MG TABLET PO SCH ×2 (09:42→22:25)
[2019-04-29] MEDS: CIPROFLOXACIN 500 MG TABLET PO SCH ×2 (09:42→22:24)
[2019-04-29] MEDS: ENOXAPARIN 40 MG/0.4 ML SYRINGE SUBCUT SCH (09:42)
[2019-04-29] MEDS: BENZTROPINE 1 MG TABLET PO SCH (09:42)
[2019-04-29] MEDS: TRIFLUOPERAZINE PEG SCH (09:44)
[2019-04-29] MEDS: MINERAL OIL/PETROLATUM OPH OINT 3.5 GM TUBE BOTH EYES SCH (22:25)
[2019-04-30] MEDS: TRIFLUOPERAZINE PEG SCH ×3 (01:43→21:27)
[2019-04-30] MEDS: ENOXAPARIN 40 MG/0.4 ML SYRINGE SUBCUT SCH (09:26)
[2019-04-30] MEDS: lisinopriL 10 MG TABLET PO SCH (09:29)
[2019-04-30] MEDS: DOCUSATE SODIUM 100 MG/10 ML UDCUP PEG SCH ×2 (09:29→21:27)
[2019-04-30] MEDS: MAGNESIUM OXIDE 400 MG TABLET PO SCH ×2 (09:29→21:27)
[2019-04-30] MEDS: BENZTROPINE 1 MG TABLET PO SCH (09:29)
[2019-04-30] MEDS: MENTHOL/ZINC OXIDE OINT 71 GM JAR TOP SCH ×2 (09:30→21:27)
[2019-04-30] MEDS: TAMSULOSIN 0.4 MG CAPSULE PO SCH ×2 (09:38→21:27)
[2019-04-30] MEDS: MINERAL OIL/PETROLATUM OPH OINT 3.5 GM TUBE BOTH EYES SCH (21:27)
[2019-05-01] MEDS: MAGNESIUM OXIDE 400 MG TABLET PO SCH ×2 (08:44→21:51)
[2019-05-01] MEDS: ENOXAPARIN 40 MG/0.4 ML SYRINGE SUBCUT SCH (08:44)
[2019-05-01] MEDS: lisinopriL 10 MG TABLET PO SCH (08:44)
[2019-05-01] MEDS: BENZTROPINE 1 MG TABLET PO SCH (08:44)
[2019-05-01] MEDS: DOCUSATE SODIUM 100 MG/10 ML UDCUP PEG SCH ×2 (08:44→21:51)
[2019-05-01] MEDS: TAMSULOSIN 0.4 MG CAPSULE PO SCH ×2 (08:44→21:51)
[2019-05-01] MEDS: MENTHOL/ZINC OXIDE OINT 71 GM JAR TOP SCH ×2 (08:45→21:51)
[2019-05-01] MEDS: TRIFLUOPERAZINE PEG SCH ×2 (10:49→22:15)
[2019-05-01] MEDS: MINERAL OIL/PETROLATUM OPH OINT 3.5 GM TUBE BOTH EYES SCH (21:51)
[2019-05-02] MEDS: ENOXAPARIN 40 MG/0.4 ML SYRINGE SUBCUT SCH (09:12)
[2019-05-02] MEDS: MENTHOL/ZINC OXIDE OINT 71 GM JAR TOP SCH ×2 (09:12→21:01)
[2019-05-02] MEDS: BENZTROPINE 1 MG TABLET PO SCH (09:13)
[2019-05-02] MEDS: TAMSULOSIN 0.4 MG CAPSULE PO SCH ×2 (09:13→21:01)
[2019-05-02] MEDS: TRIFLUOPERAZINE PEG SCH ×2 (09:13→21:46)
[2019-05-02] MEDS: DOCUSATE SODIUM 100 MG/10 ML UDCUP PEG SCH ×2 (09:13→21:02)
[2019-05-02] MEDS: MAGNESIUM OXIDE 400 MG TABLET PO SCH ×2 (09:13→21:01)
[2019-05-02] MEDS: lisinopriL 10 MG TABLET PO SCH (09:13)
[2019-05-03] MEDS: MINERAL OIL/PETROLATUM OPH OINT 3.5 GM TUBE BOTH EYES SCH ×2 (02:23→20:53)
[2019-05-03] MEDS: ENOXAPARIN 40 MG/0.4 ML SYRINGE SUBCUT SCH (09:45)
[2019-05-03] MEDS: TAMSULOSIN 0.4 MG CAPSULE PO SCH ×2 (09:46→20:53)
[2019-05-03] MEDS: MAGNESIUM OXIDE 400 MG TABLET PO SCH ×2 (09:46→20:53)
[2019-05-03] MEDS: DOCUSATE SODIUM 100 MG/10 ML UDCUP PEG SCH ×2 (09:46→20:53)
[2019-05-03] MEDS: BENZTROPINE 1 MG TABLET PO SCH (09:46)
[2019-05-03] MEDS: lisinopriL 10 MG TABLET PO SCH (09:46)
[2019-05-03] MEDS: TRIFLUOPERAZINE PEG SCH ×2 (09:47→20:51)
[2019-05-03] MEDS: MENTHOL/ZINC OXIDE OINT 71 GM JAR TOP SCH ×2 (09:47→20:52)
[2019-05-04] MEDS: BENZTROPINE 1 MG TABLET PO SCH (09:05)
[2019-05-04] MEDS: MAGNESIUM OXIDE 400 MG TABLET PO SCH ×2 (09:05→21:56)
[2019-05-04] MEDS: ENOXAPARIN 40 MG/0.4 ML SYRINGE SUBCUT SCH (09:05)
[2019-05-04] MEDS: lisinopriL 10 MG TABLET PO SCH (09:05)
[2019-05-04] MEDS: DOCUSATE SODIUM 100 MG/10 ML UDCUP PEG SCH ×2 (09:05→21:55)
[2019-05-04] MEDS: MENTHOL/ZINC OXIDE OINT 71 GM JAR TOP SCH ×2 (09:06→21:54)
[2019-05-04] MEDS: TRIFLUOPERAZINE PEG SCH ×2 (09:06→21:56)
[2019-05-04] MEDS: TAMSULOSIN 0.4 MG CAPSULE PO SCH ×2 (09:06→21:55)
[2019-05-04] MEDS: MINERAL OIL/PETROLATUM OPH OINT 3.5 GM TUBE BOTH EYES SCH (21:56)
[2019-05-05 06:47] LABS: Calcium 8.8 MG/DL (8.5-10.1); Osmolality,Calculated 282.3 MOS/KG (273-304); Prealbumin 16.5 MG/DL (20-40)
[2019-05-05] MEDS: ENOXAPARIN 40 MG/0.4 ML SYRINGE SUBCUT SCH (08:28)
[2019-05-05] MEDS: TAMSULOSIN 0.4 MG CAPSULE PO SCH (08:29)
[2019-05-05] MEDS: MAGNESIUM OXIDE 400 MG TABLET PO SCH (08:29)
[2019-05-05] MEDS: BENZTROPINE 1 MG TABLET PO SCH (08:29)
[2019-05-05] MEDS: DOCUSATE SODIUM 100 MG/10 ML UDCUP PEG SCH (08:29)
[2019-05-05] MEDS: lisinopriL 10 MG TABLET PO SCH (08:29)
[2019-05-05] MEDS: MENTHOL/ZINC OXIDE OINT 71 GM JAR TOP SCH (08:30)
[2019-05-05] MEDS: TRIFLUOPERAZINE PEG SCH (10:49)
[2019-05-05 11:17] VITALS: BP 117/63
== END 2019-05-05 15:30 | disposition home or self-care (01) | DRG 481 ==
LOC: EDUNIT# → EDBD → N.ED 22:47 → N.EDINP 03-03 01:07 → SUATTDRO 03-03 01:07 → N.3E 03-03 01:59 → N.4E 04-29 16:33 → N.3E 05-01 08:21
PROVIDERS: ADMIT Internal Medicine; ATTEND Hospitalist
PROC: EGDWPEG (ICD-10-PCS; 2019-03-18 10:35)